=== PATIENT | female | born 1950 | race Caucasian/White ===

== ENCOUNTER 2017-11-07 10:00 | Outpatient (RCR) | payer MEDICARE, OTHER, SELFPAY | END 2017-11-07 23:59 | LOC: PT.CARL 10:00 | PROVIDERS: Referring Provider Internal Medicine; Visit Provider Internal Medicine | DX: R26.9 Unspecified abnormalities of gait and mobility (principal); M17.0 Bilateral primary osteoarthritis of knee | CPT/HCPCS: G8978; G8979; G8980; 97110; 97162 ==

== ENCOUNTER 2017-12-03 08:30 | Outpatient (RCR) | payer MEDICARE, OTHER, SELFPAY | END 2017-12-03 13:00 | disposition home or self-care (01) | LOC: PT 08:30 | PROVIDERS: Visit Provider Psychiatry & Neurology Neurology | DX: R26.9 Unspecified abnormalities of gait and mobility (principal); M17.0 Bilateral primary osteoarthritis of knee | CPT/HCPCS: 97033; 97110; 97140 ==

== ENCOUNTER 2019-03-18 13:00 | Outpatient (RCR) | payer MEDICARE, OTHER, SELFPAY | END 2019-03-30 16:06 | disposition home or self-care (01) | LOC: PT.CARL 13:00 | PROVIDERS: Visit Provider Physician Assistant | DX: R42 Dizziness and giddiness (principal); M25.551 Pain in right hip | CPT/HCPCS: 97014; 97033; 97110; 97112; 97140; 97163; G0283 ==

== ENCOUNTER 2021-02-06 11:00 | Outpatient (RCR) | payer MEDICARE, OTHER, SELFPAY | END 2021-02-06 13:00 | disposition home or self-care (01) | LOC: PT.CARL 11:00 | PROVIDERS: Visit Provider Nurse Practitioner Family | DX: R26.9 Unspecified abnormalities of gait and mobility (principal); R29.6 Repeated falls; Z86.73 Personal history of transient ischemic attack (TIA), and cerebral infarction without residual deficits | CPT/HCPCS: 97110; 97112; 97116; 97163; 97164 ==

== ENCOUNTER 2025-04-20 08:26 | Outpatient (CLI) | payer MEDICARE, OTHER, SELFPAY ==
--- OUTSIDE RECORDS SUMMARY | 2025-03-16 00:28 | XMS_ITS | Continuity of Care Document ---
Author Organization [facility] Phone Care Team Providers Care Marketing Systems Manager Name Role Phone RIKA VOGT Primary Care AUTUMN PICHARDO Admitting Unavailable AUTUMN PICHARDO Unavailable Unavailable AUTUMN PICHARDO Primary Attending Unavailable ALLERGIES AND ADVERSE REACTIONS FAMILY HISTORY RESULTS MEDICATIONS SOCIAL HISTORY VITAL SIGNS HEALTH CONCERNS ENCOUNTERS CARE TEAM
--- OUTSIDE RECORDS SUMMARY | 2025-04-18 02:15 | XMS_ITS | Continuity of Care Document ---
Author Organization [facility] Phone Care Team Providers Care Business Development Analyst Name Role Phone RIKA VOGT Primary Care COLLIN LIMON Primary Attending COLLIN LIMON Unavailable COLLIN LIMON Admitting ALLERGIES AND ADVERSE REACTIONS ALLERGIES AND ADVERSE REACTIONS Code System Allergy Substance Adverse Reaction Date Reaction (Severity) Comment Status Reported By Updated By [id number] RXNorm DARVON Drug-induced nausea and vomiting Shock active [id number] on April 16, 2025 1:45:45 AM [facility] FAMILY HISTORY RELATION: Father Status: Cause of : Unknown Age at : Unknown SNOMED-CT Diagnosis Age At Onset [id number] Diabetes mellitus [id number] Heart disease RELATION: Mother Status: Cause of : Unknown Age at : Unknown SNOMED-CT Diagnosis Age At Onset [id number] Heart disease RESULTS Patient: SUSANNAH Sutton Date of : [birth year] LABORATORY RESULTS ORDER 100: CBC AUTO W DIFF ( LOINC: 92159-4) ORDER DATE: April 16, 2025 1:43:00 AM UT Specimen Source: Whole Blood Specimen Type: Whole blood s ample PERFORMING LAB: [address] [id number] Result Comment: Final Result Date: April 16, 2025 2:02:00 AM UT (TECH: SLB) LOINC TEST FLAG RESULT REFERENCE RANGE UPDA ZOE BY 6690-2 Leukocytes [#/volume] in Blood by Automated count N 7.1 10^3/uL 4.5 10^3/uL - 11.5 10^3/uL April 16, 2025 2:02:00 AM UT (TECH: SLB) 789-8 Erythrocytes [#/volume] in Blood by Automated count L 4.02 10^6/uL 4.25 10^6/uL - 5.57 10^6/uL April 16, 2025 2:02:00 AM UTC (TECH: [employer]) 718-7 Hemoglobin [Mass/volume] in Blood L 11.4 g/dL 12.0 g/dL - 15.7 g/dL April 16, 2025 2:02:00 AM UTC (TECH: SLB) 24580-9 Hematocrit [Volume Fraction] of Blood L 34.8 % 36.0 % - 47.0 % April 16, 2025 2:02:00 AM UTC (TECH: SLB) 787-2 Erythrocyte mean corpuscular volume [Entitic volume] by Automated count N 86.6 fl 80 fl - 95 fl April 16, 2025 2:02:00 AM UTC (TECH: [employer]) 01430-7 Erythrocyte mean corpuscular hemoglobin [Entitic mass] in Blood from Fetus by Automated count N 28.4 pg 27.0 pg - 34.0 pg April 16, 2025 2:02:00 AM UTC (TECH: [employer]) 06013-3 Erythrocyte mean corpuscular hemoglobin concentration [Mass/volume] in Blood from Fetus by Automated count N 32.8 g/dL 32.0 g/dL - 36.0 g/dL April 16, 2025 2:02:00 AM UTC (TECH: [employer]) 26083-8 Platelets [#/volume] in Blood N 225 10^3/uL 150 10^3/uL - 450 10^3/uL April 16, 2025 2:02:00 AM UTC (TECH: [employer]) 42133-8 Erythrocyte distribution width [Ratio] N 13.5 % 12.3 % - 15.1 % April 16, 2025 2:02:00 AM UTC (TECH: [employer]) 28118-2 Platelet mean volume [Entitic volume] in Blood by Automated count H 10.7 fl 7.4 fl - 10.4 fl April 16, 2025 2:02:00 AM UTC (TECH: [employer]) 72454-4 Granulocytes/100 leukocytes in Blood by Automated count N 63.5 % 40 % - 75 % April 16, 2025 2:02:00 AM UTC (TECH: SLB) 736-9 Lymphocytes/100 leukocytes in Blood by Automated count N 26.1 % 15 % - 57 % April 16, 2025 2:02:00 AM UTC (TECH: SLB) 5905-5 Monocytes/100 leukocytes in Blood by Automated count N 6.2 % 4.0 % - 12.0 % April 16, 2025 2:02:00 AM UTC (TECH: SLB) 713-8 Eosinophils/100 leukocytes in Blood by Automated count N 2.8 % 0.0 % - 4.0 % April 16, 2025 2:02:00 AM UTC (TECH: SLB) 706-2 Basophils/100 leukocytes in Blood by Automated count N 0.6 % 0.0 % - 1.0 % April 16, 2025 2:02:00 AM UTC (TECH: SLB) 40209-8 Immature granulocytes [#/volume] in Blood N 0.8 % 0.0 % - 0.8 % April 16, 2025 2:02:00 AM UTC (TECH: SLB) 91048-0 Granulocytes [#/volume] in Blood by Automated count N 4.52 10^3/uL April 16, 2025 2:02:00 AM UTC (TECH: SLB) 731-0 Lymphocytes [#/volume] in Blood by Automated count N 1.86 10^3/uL April 16, 2025 2:02:00 AM UTC (TECH: SLB) 742-7 Monocytes [#/volume] in Blood by Automated count N 0.44 10^3/uL April 16, 2025 2:02:00 AM UTC (TECH: SLB) 711-2 Eosinophils [#/volume] in Blood by Automated count N 0.20 10^3/uL April 16, 2025 2:02:00 AM UTC (TECH: SLB) 704-7 Basophils [#/volume] in Blood by Automated count N 0.04 10^3/uL April 16, 2025 2:02:00 AM UTC (TECH: SLB) 60575-8 Immature granulocytes [#/volume] in Blood N 0.06 10^3/uL April 16, 2025 2:02:00 AM UTC (TECH: SLB) 24079-6 Manual differential performed [Presence] in Blood N NO April 16, 2025 2:02:00 AM UT (TECH: SLB) ORDER 200: COMP METABOLIC PA ROSAS (LOINC: 68222-6) ORDER DATE: April 16, 2025 1:43:00 AM UTC Specimen Source: Plasma Specimen Type: Plasma specim en PERFORMING LAB: [address] [id number] Result Comment: Final Result Date: April 16, 2025 2:15:00 AM UT (TECH: SLB) LOINC TEST FLAG RESULT REFERENCE RANGE UPDA ZOE BY 2951-2 Sodium [Moles/volume ] in Serum or Plasma N 139 mmol/L 136 mmol/L - 145 mmol/L April 16, 2025 2:15:00 AM UT (TECH: SLB) 2823-3 Potassium [Moles/volume] in Serum or Plasma N 3.5 mmol/L 3.5 mmol/L - 5.1 mmol/L April 16, 2025 2:15:00 AM UT (TECH: SLB) 2075-0 Chloride [Moles/volu me] in Serum or Plasma N 101 mmol/L 98 mmol/L - 107 mmol/L April 16, 2025 2:15:00 AM UT (TECH: SLB) 8-9 Carbon dioxide, tota l [Moles/volume] in Serum or Plasma N 29 mmol/L 21 mmol/L - 32 mmol/L April 16, 2025 2:15:00 AM UT (TECH: SLB) 89981-3 Anion gap 3 in Serum or Plasma N 9.0 April 16, 2025 2:15:00 AM UT (TECH: SLB) 2345-7 Glucose [Mass/volume ] in Serum or Plasma H 174 mg/dL 70 mg/dL - 110 mg/dL April 16, 2025 2:15:00 AM UTC (TECH: SLB) 3094-0 Urea nitrogen [Mass/volume] in Serum or Plasma N 16 mg/dL 7 mg/dL - 18 mg/dL April 16, 2025 2:15:00 AM UT (TECH: SLB) 2160-0 Creatinine [Mass/volume] in Serum or Plasma N 0.9 mg/dL 0.6 mg/dL - 1.0 mg/dL April 16, 2025 2:15:00 AM UTC (TECH: [employer]) 3097-3 Urea nitrogen/Creatinine [Mass Ratio] in Serum or Plasma N 17.8 9 - 21 April 16, 2025 2:15:00 AM [facility] (TECH: [employer]) 52353-7 Glomerular filtratio n rate/1.73 sq M.predicted by Creatinine-based formula (MDRD) N 67 mL/min >60 April 16, 2025 2:15:00 AM [facility] (TECH: [employer]) 40364-2 Osmolality of Serum or Plasma by calculated by sum of electrolytes N 295 mosm/kg 275 mosm/kg - 301 mosm/kg April 16, 2025 2:15:00 AM [facility] (TECH: [employer]) 2885-2 Protein [Mass/volume ] in Serum or Plasma N 6.9 g/dL 6.4 g/dL - 8.2 g/dL April 16, 2025 2:15:00 AM [facility] (TECH: [employer]) 1751-7 Albumin [Mass/volume ] in Serum or Plasma L 2.9 g/dL 3.4 g/dL - 5.0 g/dL April 16, 2025 2:15:00 AM [facility] (TECH: [employer]) 61198-1 Calcium [Mass/volume ] in Serum or Plasma N 9.0 mg/dL 8.5 mg/dL - 10.1 mg/dL April 16, 2025 2:15:00 AM [facility] (TECH: [employer]) 67975-7 Calcium [Mass/volume ] corrected for total protein in Serum or Plasma N 9.9 mg/dL 8.5 mg/dL - 10.1 mg/dL April 16, 2025 2:15:00 AM [facility] (TECH: [employer]) 1975-2 Bilirubin.total [Mass/volume] in Serum or Plasma N 0.4 mg/dL 0.4 mg/dL - 1.5 mg/dL April 16, 2025 2:15:00 AM [facility] (TECH: [employer]) 1920-8 Aspartate aminotransferase [Enzymatic activity/volume] in Serum or Plasma N 19 U/L 15 U/L - 37 U/L April 16, 2025 2:15:00 AM [facility] (TECH: [employer]) 1742-6 Alanine aminotransferase [Enzymatic activity/volume] in Serum or Plasma N 13 U/L 12 U/L - 78 U/L April 16, 2025 2:15:00 AM UTC (TECH: SLB) 6768-6 Alkaline phosphatase [Enzymatic activity/volume] in Serum or Plasma N 134 U/L 53 U/L - 141 U/L April 16, 2025 2:15:00 AM UTC (TECH: SLB) ORDER 300: TROPONIN QUANT (L OINC: 31107-1) ORDER DATE: April 16, 2025 1:43:00 AM UTC Specimen Source: Plasma Specimen Type: Plasma specim en PERFORMING LAB: [address] [id number] Result Comment: Final Result Date: April 16, 2025 2:15:00 AM UTC (TECH: SLB) LOINC TEST [place] [address]-1 Troponin I.cardiac panel - Serum or Plasma by High sensitivity method N 17 ng/L 0 ng/L - 51 ng/L April 16, 2025 2:15:00 AM UTC (TECH: SLB) ORDER 400: B-TYPE NATRIURETI C PEPTIDE BNP (LOINC: 25032-2) ORDER DATE: April 16, 2025 1:43:00 AM UTC Specimen Source: Whole Blood Specimen Type: Whole blood s ample PERFORMING LAB: [address] [id number] Result Comment: Final Result Date: April 16, 2025 2:22:00 AM UT (TECH: SLB) LOINC TEST FLAG [place] [address]-3 Natriuretic peptide B [Mass/volume] in Serum or Plasma H 169.0 pg/mL 0.0 pg/mL - 100 pg/mL April 16, 2025 2:22:00 AM UTC (TECH: SLB) LABORATORY NARRATIVE RESULTS Information is not available RADIOLOGY RESULTS ORDER 600: CHEST SINGLE VIEW /PORTABLE (LOINC: 23574-1) ORDER DATE: April 16, 2025 1:43:00 AM UTC PERFORMING LAB: [address] [id number] Final Result Date: April 16 2:36:17 AM UTC [address] [place] [address] Name: DAVALOSBRENDEN Schmitz Exam Date: 04/15/2025 : 1950 Age 75 years Gender: F Physician: Facility: [facility] Facility HSV: Outpatient Exam: CHEST SINGLE VIEW/PORTABLE FINAL REPORT TECHNIQUE: null CLINICAL HISTORY: sudden onset of [employer] / hx copd / hx abnormal EKGs never diagnosed with anything / non smoker / unable to locate her rescue inhaler COMPARISON: null FINDINGS: 1 view chest x-ray Comparison: 03/14/2025 Findings: Lungs are clear without acute infiltrates. No pneumothorax. Heart size normal. No acute bony abnormalities. IMPRESSION: Impression: No acute processes Authenticated and [facility]AST[facility] Dictated By: Parish Nichols Transcribed By: Transcribed On: 04/15/2025 10:36 PM Electronically signed by: Parish Nichols 04/15/2025 Thank you for referring BRENDEN DAVALOS to [facility]. Legally authenticated by LIAM Baez [facility] 2025-04-15 22:36:17 PATHOLOGY NARRATIVE RESULTS Information is not available MICROBIOLOGY RESULTS No Micro Labs/Results Exist for Patient BLOOD ADMIN RESULTS Information is not available MEDICATIONS HOME MEDICATIONS Status RXNORM [facility] Medication Dose Route Frequency Dates Comments Reported By Updated By Active [id number] 70185 99601 0 albuterol sulfate 90 mcg/actuatio n HFA Aerosol Inhaler 2.0 INH INHALE D Q6HPRN Last Dose: [id number] on April 16, 2025 1:45:46 AM [facility] Active 4718325 66989 10435 8 Breztri Aerosphere 160-9-4.8 mcg/actuatio n HFA Aerosol Inhaler 2.0 INH INHALE D BID Last Dose: [id number] on April 16, 2025 1:45:47 AM [facility] Active 783130 52665 32280 5 clonidine HCl 0.2 mg tablet 1.0 TAB ORAL BID Last Dose: [id number] on April 16, 2025 1:45:47 AM UT Active 523802 43765 09196 1 clopidogrel 75 mg tablet 1.0 TAB ORAL BID Last Dose: [id number] on April 16, 2025 1:45:47 AM [facility] Active 940800 93586 38899 0 escitalopram oxalate 20 mg tablet 1.0 TAB ORAL DAILY Last Dose: [id number] on April 16, 2025 1:45:47 AM [facility] Active 383605 97254 47216 1 furosemide 20 mg tablet 1.0 TAB ORAL DAILY Last Dose: [id number] on April 16, 2025 1:45:47 AM [facility] Active 183207 67671 83525 9 hydroxyzine HCl 25 mg tablet 1.0 TAB ORAL TID Last Dose: [id number] on April 16, 2025 1:45:47 AM [facility] Active 534324 00114 44146 2 losartan 100 mg tablet 1.0 TAB ORAL Last Dose: [id number] on April 16, 2025 1:45:47 AM [facility] Active 8969323 63816 91986 5 Lumigan 0.01 % drops 1.0 DRP Last Dose: [id number] on April 16, 2025 1:45:47 AM [facility] Active 075157 19987 76131 0 meloxicam 15 mg tablet 1.0 TAB ORAL DAILY Last Dose: [id number] on April 16, 2025 1:45:48 AM [facility] Active 304229 57120 89380 1 metoprolol succinate 50 mg Tablet, Extended Release 24 hr 1.0 TAB ORAL DAILY Last Dose: [id number] on April 16, 2025 1:45:48 AM [facility] Active 971835 29383 63747 1 potassium chloride 20 mEq tablet, extended release 1.0 TAB ORAL DAILY Last Dose: [id number] on April 16, 2025 1:45:48 AM [facility] Active 262411 72307 00878 1 simvastatin 20 mg tablet 1.0 TAB ORAL DAILY Last Dose: [id number] on April 16, 2025 1:45:48 AM [facility] Active 897375 25170 50943 1 trazodone 50 mg tablet 1.0 TAB ORAL Last Dose: [id number] on April 16, 2025 1:45:48 AM [facility] DISCHARGE MEDICATIONS Status RXNORM NDC Medication Dose Route Frequency Dates Comments Physician Updated By No Discharge Medication Info rmation Available INPATIENT MEDICATIONS Status RXNORM [facility] Medication Dose Route Frequency Rat e Quantity Dates Comments [facility]ician [id number] 9899 4167 134 hydrALAZINE (APRESOLINE ) 20 MG/ML SOLN 20.0 MG INTRAV ENOUS ONE TIME ONLY Start: April 16, 2025 2:14:0 0 AM UTC End: April 16, 2025 2:14:0 0 AM UTC BRAXTON Sutton MD [facility] ED on April 16, 2025 2:14:00 AM UT SOCIAL HISTORY SOCIAL HISTORY SNOMED-CT Social History Element Description Effective Dates Offered Cessation Comment UpdatedBy [id number] Current Tobacco smoking status Never Smoked [id number] on April 16, 2025 1:46:32 AM UT [id number] Historical Tobacco smoking status Former Smoker Yes quit over 50 years ago [id number] on July 19, 2016 2:54:19 PM UT SOCIAL HISTORY - Gender Sex: Female SOCIAL HISTORY - Status : status i nformation is not available Intention in Next Year: intention information is not available SOCIAL HISTORY - Sexual Behavior Sexual Orientation Gender Identity SNOMED-CT Description SNO MED -CT Description Activity Level No of Partners Partner Type UpdatedBy Information is not available VITAL SIGNS PATIENT VITAL SIGNS This section displays the mo st recent value for each vital sign as of April 18, 2025 6:15:57 AM UT Loinc Code Vital Sign Activity Date Result Updated By 8310-5 Body temperature April 16, 2025 1:35:37 AM UTC 97.9 [degF] [id number] on April 17, 2025 3:09:[place] [address]-0 Body weight Measured April 16 1:41:00 AM UTC 109.0 kg (240.0 lb) [id number] on April 16, 2025 1:41:00 AM UT 8462-4 Diastolic blood pressure April 16, 2025 2:46:00 AM UTC 77.0 mm[Hg] [id number] on April 17, 2025 3:10:03 AM UT 8867-4 Heart rate April 16, 2025 2:47:00 AM UTC 80 /min [id number] on April 17, 2025 3:10:[place] [address]-5 Oxygen saturation in Arterial blood by Pulse oximetry April 16, 2025 2:47:00 AM UTC 97.0 % [id number] on April 17, 2025 3:10:04 AM UT 9279-1 Respiratory rate April 16, 2025 2:47:00 AM UTC 15 /min [id number] on April 17, 2025 3:10:04 AM [facility] 8480-6 Systolic blood pressure April 16, 2025 2:46:00 AM [facility] 193.0 mm[Hg] [id number] on April 17, 2025 3:10:03 AM [facility] PEDIATRIC GROWTH CHART - VITAL SIGNS This section displays Head C ircumference Percentile, Weight for Length Percentile and BMI Percentile Loinc Code Pediatric Measure Age (Months) Result Updat ed By No Pediatric Growth Chart Pe rcentile Information Available. HEALTH CONCERNS Problems Concern Status Health Concern problem infor mation not available. Smoking Status Status Years Used Consumed packs p er day Health Concern smoking histo ry information not available. Family History Concern Status Health Concern family histor y information not available. ENCOUNTERS ENCOUNTER INFORMATION Reason for Visit SHORTNESS OF BREATH Admission April 16, 2025 1:28:[address] [id number] Discharge April 16, 2025 3:09:00 AM [facility] DISC HARGED TO HOME OR SELF CARE ENCOUNTER DIAGNOSES Notes information is not inna ilable. Code System Diagnosis Onset Date Diagnosis information is not available. ABSTRACT DIAGNOSES Code System Diagnosis Updated By R06.02 ICD10 SHORTNESS OF BREATH [id number] on April 18, 2025 6:13:51 AM [facility] R06.00 ICD10 DYSPNEA, UNSPECIFIED [id number] on April 18, 2025 6:13:51 AM [facility] R06.00 ICD10 DYSPNEA, UNSPECIFIED [id number] on April 18, 2025 6:13:51 AM [facility] I10 ICD10 ESSENTIAL (PRIMARY) HYPERTEN HOLDEN SYE6123 on April 18, 2025 6:13:51 AM [facility] J45.909 ICD10 UNSPECIFIED ASTHMA, UNCOMPLI CATED [id number] on April 18, 2025 6:13:51 AM [facility] F41.9 ICD10 ANXIETY DISORDER, UNSPECIFIE D [id number] on April 18, 2025 6:13:51 AM [facility] F32.A ICD10 DEPRESSION, UNSPECIFIED BYE3 630 on April 18, 2025 6:13:51 AM [facility] Z88.8 ICD10 ALLERGY STATUS T O OTHER DRUGS, MEDICAMENTS AND BIOLOGICAL SUBSTANCES [id number] on April 18, 2025 6:13:51 AM [facility] Z79.51 ICD10 FCI (CURRE NT) USE OF INHALED STEROIDS [id number] on April 18, 2025 6:13:51 AM [facility] Z79.899 ICD10 OTHER FCI (CURRENT) DR UG THERAPY [id number] on April 18, 2025 6:13:51 AM [facility] CARE TEAM Care Business Development Analyst Role RIKA VOGT Primary Care COLLIN LIMON Primary Attending COLLIN LIMON Referring COLLIN LIMON Admitting 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 CARE plastics supervisor Role on Team Status Start Date End Date Update d By BRAXTON Sutton MD Referring normal April 16 2:00:14 AM [facility] April 16, 2025 3:09:00 AM [facility] [id number] on April 16, 2025 2:00:14 AM [facility] BRAXTON Sutton MD Attending normal April 16 2:00:14 AM [facility] April 16, 2025 3:09:00 AM [facility] [id number] on April 16, 2025 2:00:14 AM [facility] BRAXTON Sutton MD Admitting normal April 16 2:00:14 AM [facility] April 16, 2025 3:09:00 AM [facility] [id number] on April 16, 2025 2:00:14 AM [facility] SIN BURRIS APRN PCP normal April 16, 2025 1:28:20 AM [facility] April 16, 2025 3:09:00 AM [facility] [id number] on April 16, 2025 2:00:14 AM [facility]
--- OUTSIDE RECORDS SUMMARY | 2025-04-20 08:29 | XMS_ITS | Data Portability ---
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 She has been instructed to go to the emergency department if she is no better. patient states that she is not allergic to any antibiotic. [email or web address] Not available 11/12/2023 15:59:00 Plan of Treatment Reminders Order Date Submit Date Provider Last Modified By Organization Details Last Modified Time Details Appointments None recorded. Lab influenza virus A + B + SARS-CoV-2 (COVID19) Ag panel, rapid IA, upper respiratory specimen 2023 [facility], [address] [place], [address], 16:11:57 Referral None recorded. Procedures None recorded. Surgeries None recorded. Imaging MAMMO, screening, digital, bilateral 2022 024 [facility] ([facility]), [address] [place] [address] [place], [address], 4 08:11:57 Medication Orders doxycycline hyclate 100 mg capsule 2023 024 [facility], [address] [place], [address], 4 09:38:29 Medrol (Timothy) 4 mg tablets in a dose pack 2023 024 [facility], [address] [place], [address], 4 09:39:45 Solu-Medrol (PF) 125 mg/2 mL solution for injection 2023 024 [facility] Not available 4 09:40:18 ceftriaxone 1 gram solution for injection 2023 024 [facility] Not available 4 09:40:49 Patient TargetsNo targets recorded. Patient InstructionsNo instructions recorded. Reason for Referral None Reported. Results Created Date Observation Date Name Description Value Unit Range Abnormal Flag Note LastModifiedBy Organization Detail LastModifiedTime 11/12/19 24 11/12/2023 influ anand virus A + B + SARS- CoV-2 (COVI D19) Ag panel , rapid IA, upper respi rator y speci men FLU A negati ve Not Available [address] [place], [address], 11/12/2023 15:32:01 11/12/19 24 11/12/2023 influ anand virus A + B + SARS- CoV-2 (COVI D19) Ag panel , rapid IA, upper respi rator y speci men FLU B negati ve Not Available [address] [place], [address], 11/12/2023 15:32:01 11/12/19 24 11/12/2023 influ anand virus A + B + SARS- CoV-2 (COVI D19) Ag panel , rapid IA, upper respi rator y speci men SARS COV + SARS OV 2 negati ve Not Available [address] [place], [address], 11/12/2023 15:32:01 01/20/20 24 01/20/2024 elect tonie becerra am No observ ation record ed. [address] [place], [address], 01/20/2024 14:17:03 01/20/20 24 01/20/2024 elect tonie becerra am No observ ation record ed. [facility] - [address], [place], [address], 01/20/2024 14:15:32 Result Notes None recorded. Problems Name Problem SNOMED Code Status Onset Date Resolution Date Notes Provider Name and Address Organization Details Recorded Time Essential hypertension 53663553 Active 2022 Latosha Pardini null, [place] - [facility] - [place] & [place] 3 09:37:56 Arthritis 7460414 Active 2022 Latosha Pard[place] 3 09:38:04 Edema 329077227 Active 2022 Latosha Pard[place] 3 09:38:11 Type 2 diabetes mellitus 06354130 Active 2022 Latosha Pard[place] 3 09:38:23 Insomnia 906796695 Active 2022 Latosha Pard[place] 3 09:38:33 Cerebrovascul ar accident 513561976 Active 2022 Latosha Pard[place] 3 09:39:04 Asthma 390779609 Active 2022 Latosha Pard[place] 3 09:39:12 Mixed anxiety and depressive disorder 326270711 Active 2022 Latosha Pardini [place] 3 09:39:28 Pulmonary hypertension 92693870 Active 2022 Latosha Pardini null, [place] [facility] [place] & [place] 3 09:39:47 Morbid obesity 136453905 Active 2022 Latosha mckeon, [place] [facility] [place] 3 09:39:58 Hypertensive disorder 94840006 Active 2022 Juwan Soria MD [address] [place] [address], [address] , [place] - [facility] - [place] & [place] 3 10:28:12 Intentionally harming self Active 2023 Lat[facility]ha [facility]ckeon, [place] [facility] [place] 4 14:16:52 Problem Notes None recorded. Procedures Surgical History Date Name Laterality Status Provider Name and Address Organization Details Recorded Time section completed Shira ROSENBAUM - [facility] - [place] & [place] 04/14/2023 16:17:02 cardiac catheterization completed Shira ROSENBAUM - [facility] - [place] & [place] 04/14/2023 16:17:13 Dilation and Curettage completed Shira Henry ROSENBAUM - [facility] - [place] & [place] 04/14/2023 16:17:47 Hysterectomy completed Shira ROSENBAUM - [facility] - [place] & [place] 04/14/2023 16:18:04 Imaging Results None recorded. Procedure Notes None recorded. Medical Equipment None Reported. Allergies Allergen ID Allergen Name Allergen Category Reaction Reaction Severity Criticality Documentation Date Start Date Code Code System Note Provider Name and Address Organization Details Recorded Time 88861 Cipro medicatio n Not available Not available Not available 10/16/2022 43389 3 RxNorm Arabella mckeon, [place] - [facility] - [place] & [place] 2 09:37:43 20879 Substance with sulfonami de structure and antibacte rial mechanism of action (substanc e) medicatio n Not available Not available Not available 10/16/2022 33294 8003 SNOMED Arabella mckeon, [place] - [facility] - [place] & [place] 2 09:37:48 07730 Bactrim medicatio n Not available Not available Not available 10/16/2022 81847 9 [facility] & [place] 2 09:37:55 48258 propoxyph meghna hydrochlo ride medicatio n Not available Not available Not available 10/16/2022 60743 RxNorm ROBI Ashley [facility] & [place] 2 09:38:03 51970 Ceftin medicatio n Not available Not available Not available 10/16/2022 55225 6 RxNorm ROBI Ashley [facility] & [place] 2 09:38:10 49787 house dust mite environme nt Not available Not available Not available 10/16/2022 83262 UNK [facility] & [place] 2 09:38:17 Medications Name Sig Start Date Stop Date Status Note LastModified by Organization Details LastModified Time fluoxetine 40 mg capsule TAKE 1 CAPSULE BY MOUTH EVERY MORNING 2023 active Not Available Not Available Not Avai lable furosemide 40 mg tablet TAKE 1 TABLET BY MOUTH EVERY DAY active Not Available Not Available No t Available metformin 500 mg tablet Take 1 tablet twice a day by oral route as directed for 30 days. active Not Available Not Available No t Available doxycycline hyclate 100 mg capsule Take 1 capsule twice a day by oral route. 01/18 completed Not Available Not Available Not Available trazodone 50 mg tablet TAKE 1 TABLET BY MOUTH AT BEDTIME active Not Available Not Available No t Available lisinopril 20 mg-hydrochl orothiazide 12.5 mg tablet Take 1 tablet every day by oral route as directed. 01/18 completed Not Available Not Available Not Available azithromyci n 250 mg tablet TAKE 2 TABLETS (500 MG) BY ORAL ROUTE ONCE DAILY FOR 1 DAY THEN 1 TABLET (250 MG) BY ORAL ROUTE ONCE DAILY FOR 4 DAYS 05/21 completed Not Available Not Available Not Available metoprolol succinate ER 50 mg tablet,exte nded release 24 hr active Not Available Not Available Not Available meloxicam 15 mg tablet TAKE 1 TABLET EVERY DAY BY ORAL ROUTE. 2023 active Not Available Not Available Not Avai lable prednisone 20 mg tablet 09/22 completed Not Available Not Available Not Available simvastatin 10 mg tablet Take 1 tablet every day by oral route as directed for 30 days. active Not Available Not Available No t Available clopidogrel 75 mg tablet TAKE 1 TABLET BY MOUTH DAILY active Not Available Not Available No t Available aspirin 81 mg tablet,radha yed release Take 1 tablet every day by oral route as directed. active Not Available Not Available No t Available quetiapine 100 mg tablet Take 1 mg every day by oral route at bedtime for 20 days. 04/08 completed Not Available Not Available Not Available isosorbide mononitrate ER 60 mg tablet,exte nded release 24 hr RX needs to be filled by Dr Atkinson active Not Available Not Available No t Available ceftriaxone 1 gram solution for injection Take 1 g by injection route. 01/18 completed Not Available Not Available Not Available clonidine HCl 0.2 mg tablet denied-ne eds appt active Not Available Not Available No t Available potassium chloride ER 20 mEq tablet,exte nded release(par t/cryst) 1 tablet by mouth once daily with LASIX active Not Available Not Available No t Available hydroxyzine HCl 25 mg tablet Take 1 tablet 3 times a day by oral route as needed. active Not Available Not Available No t Available zolpidem 5 mg tablet Take 1 tablet every day by oral route. 01/18 completed Not Available Not Available Not Available methylpredn isolone 4 mg tablets in a dose pack Take 1 dose pk by oral route. 01/18 completed Not Available Not Available Not Available losartan 100 mg tablet TAKE 1 TABLET BY MOUTH EVERY DAY active Not Available Not Available No t Available metformin ER 500 mg tablet,exte nded release 24 hr 05/21 completed Not Available Not Available Not Available Ventolin HFA 90 mcg/actuati on aerosol inhaler active Not Available Not Available Not Available azithromyci n 500 mg tablet 08/22 completed Not Available Not Available Not Available escitalopra m 10 mg tablet TAKE 1 TABLET BY MOUTH EVERY DAY DIRECTED 2023 active Not Available Not Available Not Avai lable ezetimibe 10 mg tablet 11/27 completed Not Available Not Available Not Available nitrofurant oin monohydrate /macrocryst als 100 mg capsule 11/27 completed Not Available Not Available Not Available aspirin 02/25 completed Not Available Not Available Not Available albuterol 11/27 completed Not Available Not Available Not Available lisinopril 11/27 completed Not Available Not Available Not Available Symbicort 160 mcg-4.5 mcg/actuati on HFA aerosol inhaler INHALE 2 PUFFS BY MOUTH TWICE DAILY 01/18 completed Not Available Not Available Not Available Solu-Medrol (PF) 125 mg/2 mL solution for injection Take 125 mg by injection route. 01/18 completed Not Available Not Available Not Available Lumigan 0.01 % eye drops active Not Available Not Available Not Available metoprolol succinate ER 100 mg capsule sprinkle, ext. release 24 hr Take 1 capsule every day by oral route. 11/27 completed Not Available Not Available Not Available Rhopressa 0.02 % eye drops active Not Available Not Available Not Available Breztri Aerosphere 160 mcg-9mcg-4. 8mcg/actuat ion HFA aerosol inhaler Inhale 1 puff twice a day by inhalatio n route for 90 days. 2022 active Not Available Not Available Not Avai lable Vitals Date Recorded Body height Body mass index (BMI) Body weight Body temperature Oxygen saturation Oxygen saturation in Arterial blood by Pulse oximetry Heart rate Respiratory rate Provider Name and Address Organization Details Last Updated DateTime 4 154.94 cm 44.4 kg/m2 866657. 21 g 97.2 [degF] 91 % 91 % 90 /min 18 /min Fredi Lopez [facility] & [place] 4 15:31:24 Date Recorded Body height Body mass index (BMI) Body weight Oxygen saturation Oxygen saturation in Arterial blood by Pulse oximetry Heart rate Systolic blood pressure Diastolic blood pressure Provider Name and Address Organization Details Last Updated DateTime 4 154.94 cm 39.5 kg/m2 23728.0 9 g 95 % 95 % 64 /min 147 mm[Hg] 76 mm[Hg] Sarah Ball [facility] & [place] 4 09:39:18 Date Recorded Body height Body mass index (BMI) Body weight Body temperature Oxygen saturation Oxygen saturation in Arterial blood by Pulse oximetry Heart rate Respiratory rate Systolic blood pressure Diastolic blood pressure Provider Name and Address Organization Details Last Updated DateTime 4 154.94 cm 39.6 kg/m2 34224.2 4 g 97.4 [degF] 95 % 95 % 62 /min 16 /min 108 mm[Hg] 56 mm[Hg] Latosha ROSENBAUM [facility] & [place] 4 14:14:22 Date Recorded Body height Body mass index (BMI) Body weight Body temperature Oxygen saturation Oxygen saturation in Arterial blood by Pulse oximetry Heart rate Respiratory rate Systolic blood pressure Diastolic blood pressure Provider Name and Address Organization Details Last Updated DateTime 4 154.94 cm 39.5 kg/m2 83885.8 1 g 97.5 [degF] 95 % 95 % 66 /min 16 /min 135 mm[Hg] 70 mm[Hg] Latosha Maciel [facility] & [place] 4 10:16:20 Date Recorded Body height Body mass index (BMI) Body weight Body temperature Oxygen saturation Oxygen saturation in Arterial blood by Pulse oximetry Heart rate Respiratory rate Systolic blood pressure Diastolic blood pressure Systolic blood pressure Diastolic blood pressure Provider Name and Address Organization Details Last Updated DateTime 3 154.94 cm 44.5 kg/m2 514156. 64 g 97.3 [degF] 94 % 94 % 57 /min 18 /min 200 mm[Hg] 85 mm[Hg] 197 mm[Hg] 74 mm[Hg] Latosha ROSENBAUM [facility] & [place] 3 10:18:44 Social History Question Answer Notes LastModified by Astley Clarke Details LastModified Time Tobacco Smoking Status Never Smoker ROBI Ashley [facility] & [place] 10/16/2022 09:49:36 What Is Your Level Of Caffeine Consumption? Occasional Information not available 10/14/2023 Has Tobacco Cessation Counseling Been Provided? No Information not available 10/14/2023 Sex: Unknown Functional Status Question Answer Note LastModified by Astley Clarke Details LastModified Time Do you use any illicit or recreational drugs? No [email or web address] Information not available 10/16/2022 Do you or have you ever used any other forms of tobacco or nicotine? No Information not available 10/14/2023 What is your level of alcohol consumption? None [email or web address] Information not available 10/16/2022 Mental Status None recorded. Family History Relationship Description Onset Age of this Age Resolved Age Notes LastModified by Organization Details LastModified Time Mother Hypertensive disorder [email or web address] Not available 2021 09:48:38 Mother Family member [email or web address] Not available 2021 09:49:24 Father Hypertensive disorder Not available 2021 09:48:45 Father Diabetes mellitus [email or web address] Not available 2021 09:48:55 Father Family member [email or web address] Not available 2021 09:49:24 Maternal Grandfather Family member [email or web address] Not available 2021 09:49:24 Maternal Grandmother Family member Not available 2021 09:49:24 Paternal Grandfather Family member [email or web address] Not available 2021 09:49:24 Paternal Grandmother Family member [email or web address] Not available 2021 09:49:24 Medical History Condition Response Anxiety Disorder Y Diabetes Y Allergies/Hayfever Y Arthritis Y Cancer Y Hypertension Y COPD Y Asthma Y Gynecological HistoryNo gynecological history recorded. Obstetrics History GPAL:G 0 P 0 0 0 0 Immunizations Vaccine Type Date Status Note Provider Nam e and Address Organization Details Recorded Time COVID-19, mRNA, LNP-S, PF, 30 mcg/0.3 mL dose 08/13/2021 completed Latosha mckeon [place] - [facility] - [place] & [place] 11/27/2022 09:36:46 COVID-19, mRNA, LNP-S, PF, 30 mcg/0.3 mL dose 07/12/2021 completed Latosha Ashleyi [place], [place] - [facility] [place] & [place] 11/27/2022 09:36:46 Past Encounters Encounter ID Performer Location Encounter Start Date Encounter Closed Date Diagnosis/Indication Diagnosis SNOMED-CT Code Diagnosis ICD10 Code Diagnosis Note [id number] Juwan Soria MD [id number] [address] 11/27/2022 09:24:05 11/27/2022 10:13:47 Mixed anxiety and depressive disorder 895025077 F41.8 Will refer to Behavioral diseaseas specialist Type 2 blair betes mellitus 19536735 E11.9 Hypertensive disorder 38 179691 I10 patient to continue with current medication s. Will obtain lab work today. [id number] Juwan Soria MD [facility] [address] [address] 01/14/2023 10:55:10 01/14/2023 11:41:38 Upper respiratory infection 09354647 J06.9 will treat patient with antibiotic s and steroids. She has been instructed to follow-up as needed. Edema 127081135 R60.9 Essential hypertension 04934734 I10 Insomnia 274114961 G47.0 0 [id number] Juwan Soria MD [address] [place] [address] 05/21/2023 10:40:44 05/21/2023 11:46:10 Acute confusion 332670868 R41.0 Altered mental status 41 5819242 R41.82 We have had extensive discussion with patient as well as with her spouse. It appears patient has been having episodes of acute confusion which include wandering and has been making on sound decisions. Patient herself states that she has been more depressed than usual. At this time she appears to be in remission. A review of her last ER visit on May 08, 2023 reveals no abnormalit ies. She had a CT scan that showed mild atrophy and chronic changes only.Mckenna vazquez is worried about how to take care of patient.I will refer patient to Neurology at [facility]. And get a baseline set of labs on her today. Type 2 blair betes mellitus 10806294 E11.9 blood drawn in the right hand by Latosha Maciel CMA, patient tolerated well. [id number] RUBÉN NGUYỄN, NASH [address] [place] [address] 08/22/2023 14:14:05 08/22/2023 14:42:00 Acute exacerbation of chronic asthmatic bronchitis 621451822 J44.1 Stop Symbicort. Start Breztri inhaler to take 2 puffs twice a day. Use Ventolin inhaler as neededresc ue vs maintenanc e inhaler educationu se of inhalers Essential hypertension 16138705 I10 compliance with medication importance f/u with PCP next week to recheck BPeducated on goal of less than 130/90advi sed low sodium diet, healthy lifestyle including exercise as ableER if any symptoms such as chest pain, shortness of breathIf her blood pressure gets worse, she needs to go to the ER. Educated on the importance of medication compliance . Edema 918002017 R60.9 Renewed Lasix to take with potassium [id number] Juwan Soria MD [address] [place] [address] 09/22/2023 10:29:35 09/22/2023 11:27:49 Poor short-term memory 815058864 R41.3 patient agrees to follow-up with Dr. [place] in [place] Insomnia 160554550 G47.0 0 we will start pt on ambien to use as needed [id number] Juwan Soria MD [address] [place] [address] 10/14/2023 10:06:15 10/14/2023 10:47:32 Essential hypertension 41396706 I10 Patient's blood pressure remains markedly elevated. She is also complainin g of a slight nonspecifi c headache. In view of the acuteness of patient's symptoms I have personally walked her over to her cardiologi 's office. She has been advised to go to the emergency department by her cardiologi . [id number] Juwan Soria MD [address] [place] [address] 11/12/2023 14:47:55 11/12/2023 16:09:47 Screening mammography of bilateral breasts 4916596051 29079 Z12.31 Cough 34553183 R05.9 Negative for COVID or the flu. Acute bronchitis 0770182 2 J20.9 [id number] Medina Vaughn MD [address] [place] [address] 01/19/2024 09:03:27 01/19/2024 09:57:45 Essential hypertension 82911322 I10 was uncontroll ed and went to ER. ER added ISMN now better controlled , patient asymptomat ic, will continue her BB, ISMN, and lasix. will increase the dose if needed. EKG normal. Blood work reviewed. Screening for cardiovascular system disease 904089156 Z13.6 Patient has multiple risk factors for coronary artery disease, but asymptomat ic. EKG normal sinus rhythm. continue medical treatment. no indication for ischemic work up at this time. Dyslipidemia 678863872 E 78.5 On statin follow up fasting lipid profile. History of cerebrovascular accident 434210591 Z86.73 No residual weakness, but has mild dementia. she is on Plavix and statin. Obesity 201231151 E66.9 BMI 39.5 recommend weight loss and sleep apnea evaluation . [id number] Juwan Soria MD [place] [address] [facility] [place] [address] 02/26/2024 13:53:55 02/26/2024 14:36:26 Altered mental status 034387161 R41.82 patient already follows up with Neurology. Patient is currently receiving home health care. [id number] Juwan Soria MD [place] [address] [facility] [place] [address] 04/08/2024 10:09:54 04/08/2024 10:37:13 Increased frequency of urination 114658144 R35.0 we have advised patient to reduce her furosemide to 20 mg a day. Will also obtain a urine specimen to rule out a UTI. Health Concerns Section Related Observation LastModified by Organization Detai ls LastModified Time None Recorded Concern Status LastModified by Organization Details LastModified Time None Recorded Advance Directives Directive None Recorded Payers Insurance Date Sequence Insurance Name Policy Number Policy Hunter Covered Member ID Hunter Member ID Guarantor Name 05/29/2024 1 [place] Renuka Watts [id number] Renuka Watts 05/29/2024 2 [employer] (MEDICARE SUPPLEMENT) Renuka Watts [id number] Renuka Watts 05/29/2024 [place] Renuka [facility] [id number] Renuka Watts 05/29/2024 2 [employer] (MEDICARE SUPPLEMENT) PLAN F Renuka Watts [id number] Renuka Watts 05/29/2024 1 [place] Renuka Watts [id number] Renuka Watts 05/29/2024 [place] - [facility] (MEDICARE) Renuka Watts [id number] Renuka Watts Notes Date Note Type Note Provider Name and Address Organization Details Recorded Time 10/14/2023 text/html Patient presents today complaining of a headache and elevated blood pressure. Patient's blood pressure is 200/85 in the office. A recheck came back at 197/74. Patient has a history of chronic high blood pressure. She is on multiple medications for this they include clonidine furosemide lisinopril / HCTZ metoprolol. Juwan Soria MD [address] [place] [address], [phone], [facility] 10/14/2023 11:04:20 11/12/2023 text/html patient presents today to follow-up from a hospital visit due to abdominal pain. She is complaining of a 1-2 day history of a cough that is productive of yellowish-green sputum. Patient is also wheezing pretty bad she has a baseline diagnosis of COPD. Juwan Soria MD [address] [place] [address], [phone], [facility] 11/12/2023 15:59:16 01/19/2024 text/html 73 year old colette steen with past medical history of CVA several years ago as per the patient with no residual weakness, mild dementia, hypertension, dyslipidemia and obesity.Patient came today to establish follow up with the cardiovascular clinic after ER visit on 01/13/24 for uncontrolled hypertension. She is accompanied by her .Patient was in the ER for uncontrolled hypertension, admitted for one day, I reviewed the blood work and the echocardiogram that was done during that admission and discussed the results with the patient. She is denying any chest pain. no shortness of breath at rest or mild exertion. no palpitations, dizziness, falling down or passing out. no orthopnea, PND or leg swelling, no bleeding. Her blood pressure is better controlled today, will continue medications.Her EKG done today and results were discssed with the patient. EKG 01/19/24 Normal sinus rhythm normal EKG.Echo 01/14/24:Normal left ventricular systolic function EF 55-60%. Medina Vaughn MD [address] [place] [address], [phone], [facility] & [place] 01/19/2024 10:00:47 02/26/2024 text/html patient presents today for hospital follow-up visit. She was recently admitted to [place] in [place]. Patient states that she had acute status changes prior to admission. She states that she is currently back to baseline. Juwan Soria MD [address] [place] [address], [phone], [facility] & [place] 03/09/2024 09:22:23 04/08/2024 text/html Patient presents today complaining of urinary frequency. She thinks she is taking too much Lasix. Patient is urinating 7 to 8 times a day. Juwan Soria MD [address] [place] [address], [phone], [facility] & [place] 04/08/2024 10:59:06 OBGyn Episode No OBEpisode recorded.
--- OUTSIDE RECORDS SUMMARY | 2025-04-20 08:30 | XMS_ITS | Data Portability ---
Author Organization [facility] Beyond the [employer]., [facility] Address [address] [place] [address] Assessment Encounter Date Assessment Date Assessment LastModified by Organization Details LastModified Time 01/10/2025 01/10/2025 +Influenza A in clinic today. Tamiflu as prescribed given other chronic conditions. RF albuterol inhaler for PRN use. Instructed r/t complications of influenza virus and the importance of following up if worsening/not improving. May use Mucinex and tylenol OTC per package instructions. Follow up if no improvement or worsening and as planned. Not available 01/12/2025 10:21:07 01/21/2025 01/21/2025 Chest XR per plan. Medications per plan. If no improvement in the next 48 hours, recommended ER evaluation. Albuterol inhaler PRN. Follow up in 2 weeks for MWV, sooner if needed. Not available 01/21/2025 11:11:43 02/04/2025 02/04/2025 Wellness discussed including recommended screenings, vaccines and lifestyle changes including routine exercise 30 minutes 5 times per week and a healthy diet. Encouraged getting up and moving around throughout the day. Discussed fall prevention and avoiding trip hazards. Encouraged physical therapy for muscle weakness and fall prevention, but patient declines at this time. Mammogram ordered with patient permission. She declines immunizations including COVID booster, pneumonia vaccine, shingrix. Eye exam recommended. Labs per plan below BP controlled. COPD - using albuterol less frequently. Maybe once every other day. Follow up in 3 months for recheck diabetes, sooner if needed Not available 02/04/2025 13:26:04 03/14/2025 03/14/2025 Given her symptoms, recommended ER evaluation today. Her agrees and will drive her directly to [facility] ER. Provided copy of today's ECG to take with her to ER. Follow up to be planned after ER visit. Not available 03/23/2025 08:16:38 03/28/2025 03/28/2025 Treat per plan below. Instructed on use of nebulizer. Chest XR normal. Patient requests wheelchair to use at home. Follow up if no improvement or worsening and as planned, sooner if needed Addendum: There are times when patient cannot use walker and needs wheelchair due to fall risk. She can use the walker for short distances, but if she has to walk or stand for more than 2-3 minutes, she needs wheelchair due to OA of bilateral knees, muscle weakness, fall risk and decreased mobility. Not available 03/30/2025 09:59:34 Plan of Treatment Reminders Order Date Submit Date Provider Last Modified By Organization Details Last Modified Time Details Appointments FOLLOW UP 15 2024 11:00A Allison Gonzalez Not available Not available Not available Lab CBC w/ auto diff 2024 025 [facility] ([place]), [address] [place], [address], 02/05/2025 05:07:01 HbA1c (hemoglob in A1c), blood 2024 025 [facility] ([place]), [address] [place], [address], 02/05/2025 05:07:04 CMP, serum or plasma 2024 025 [email or web address] ([place]), [address] [place], [address], 02/05/2025 05:07:02 lipid panel, serum 2024 025 [facility] ([place]), [address] [place], [address], 02/05/2025 05:07:03 Hepatitis C IgG Ab, qual, serum 2024 025 [facility] ([place]), [address] [facility], [place], [address], 02/05/2025 05:07:04 rapid flu (A+B) [address], [address], 01/21/2025 11:12:16 rapid SARS CoV 2 Ag, QL, IA, upper respirato ry specimen [email or web address], [address], 01/21/2025 08:56:20 rapid flu (A+B) [address], [address], 01/10/2025 09:18:34 rapid SARS CoV 2 Ag, QL, IA, upper respirato ry specimen [address], [address], 01/10/2025 09:18:34 Referral None recorded. Procedures None recorded. Surgeries None recorded. Imaging XR, chest, 2 view 2024 [email or web address], [address], 03/29/2025 10:21:14 electroca rdiogram 2024 [email or web address], [address], 03/14/2025 12:55:38 MAMMO, screening , digital, bilateral - first available appt [address] Centralized Scheduling, [address] , [place], [address], 03/11/2025 11:54:03 XR, chest, 2 view 2024 [facility] [place], [facility], [address] [facility], [place], [address], 01/21/2025 11:31:09 Medication Orders prednison e 20 mg tablet 2024 025 [facility], [address] [place], [address], 03/29/2025 09:27:15 azithromy hector 250 mg tablet 2024 025 [facility], [address] [place], [address], 03/29/2025 09:27:16 ipratropi um 0.5 mg-albute rol 3 mg (2.5 mg base)/3 mL nebulizat ion soln 2024 025 [email or web address] Not available 03/28/2025 13:16:49 albuterol sulfate 2.5 mg/3 mL (0.083 %) solution for nebulizat ion 2024 025 [facility], [address] , [place], [address], 03/30/2025 16:06:44 amoxicill in 875 mg-potass ium clavulana te 125 mg tablet 2024 025 [facility], [address] [place], [address], 02/04/2025 09:36:41 prednison e 20 mg tablet 2024 025 [facility], [address] , [place], [address], 02/04/2025 09:36:42 oseltamiv ir 75 mg capsule 2024 025 [facility], [address] [place], [address], 03/28/2025 10:04:33 Ventolin HFA 90 mcg/actua tion aerosol inhaler 2024 025 [facility], [address] [place], [address], 01/10/2025 10:18:13 Patient TargetsNo targets recorded. Patient Instructions Encounter Date Encounter Id Patient Instructions Last Modified By Organization Details Last Modified Time 01/10/2025 [id number] learning about fever Not available 01/10/2025 09:18:34 wheezing or bronchoconstricti on: care instructions Not available 01/10/2025 09:19:20 01/21/2025 [id number] learning about fever [email or web address] Not available 01/21/2025 08:56:02 shortness of breath: care instructions [email or web address] Not available 01/21/2025 08:56:02 02/04/2025 [id number] dementia: care instructions Not available 02/04/2025 13:25:06 helping A person with dementia: care instructions Not available 02/04/2025 13:25:06 learning about type 2 diabetes Not available 02/04/2025 10:00:32 type 2 diabetes: care instructions Not available 02/04/2025 10:00:32 chronic obstructive pulmonary disease (COPD): care instructions Not available 02/04/2025 13:26:20 learning about copd and how to prevent lung infections Not available 02/04/2025 13:26:20 body mass index: care instructions Not available 02/04/2025 13:24:00 learning about healthy weight Not available 02/04/2025 13:24:00 Reason for Referral None Reported. Results Created Date Observation Date Name Description Value Unit Range Abnormal Flag Note LastModifiedBy Organization Detail LastModifiedTime 01/11/2001/10/2025 rapid flu (A+B) Flu A positi ve Not Available [address], [address], 01/10/2025 08:41:16 01/11/20 25 01/10/2025 rapid flu (A+B) Flu B negati ve Not Available [address], [address], 01/10/2025 08:41:16 01/11/20 25 01/10/2025 rapid SARS CoV 2 Ag, QL, IA, upper respi rator y speci men SARS CoV Ag negati ve Not Available [address], [address], 01/10/2025 08:41:18 01/22/20 25 01/21/2025 rapid flu (A+B) Flu A negati ve Not Available [address], [address], 01/21/2025 08:41:26 01/22/20 25 01/21/2025 rapid flu (A+B) Flu B negati ve Not Available [address], [address], 01/21/2025 08:41:26 01/22/20 25 01/21/2025 rapid SARS CoV 2 Ag, QL, IA, upper respi rator y speci men SARS CoV Ag negati ve Not Available [address], [address], 01/21/2025 08:41:31 02/05/20 25 02/05/2025 CBC WITH DIFFE RENTI AL/PL ATELE T WBC 6.4 x10e3 /uL 3.4-10 .8 normal Not Available [facility] ([facility]) [address] [facility] [address], [place], [address], 02/05/2025 05:07:01 02/05/20 25 02/05/2025 CBC WITH DIFFE RENTI AL/PL ATELE T RBC 4.50 x10e6 /uL 3.77-5 .28 normal Not Available [facility] ([facility]) [address] [place], [address], 02/05/2025 05:07:01 02/05/20 25 02/05/2025 CBC WITH DIFFE RENTI AL/PL ATELE T hemoglobin 12.8 g/dL 11.1-1 5.9 normal Not Available [facility] ([facility]) [address] [place], [address], 02/05/2025 05:07:01 02/05/20 25 02/05/2025 CBC WITH DIFFE RENTI AL/PL ATELE T hematocrit 39.4 % 34.0-4 6.6 normal Not Available [facility] ([facility]) [address] [place], [address], 02/05/2025 05:07:01 02/05/20 25 02/05/2025 CBC WITH DIFFE RENTI AL/PL ATELE T MCV 88 fL 79-97 normal Not Available [facility] ([facility]) [address] [place], [address], 02/05/2025 05:07:01 02/05/20 25 02/05/2025 CBC WITH DIFFE RENTI AL/PL ATELE T MCH 28.4 pg 26.6-3 3.0 normal Not Available [facility] ([facility]) [address] [place], [address], 02/05/2025 05:07:01 02/05/20 25 02/05/2025 CBC WITH DIFFE RENTI AL/PL ATELE T MCHC 32.5 g/dL 31.5-3 5.7 normal Not Available [facility] ([facility]) [address] [facility] [place], [address], 02/05/2025 05:07:01 02/05/20 25 02/05/2025 CBC WITH DIFFE RENTI AL/PL ATELE T RDW 13.3 % 11.7-1 5.4 Not Available [facility] ([facility]) [address] [facility] [address], [place], [address], 02/05/2025 05:07:01 02/05/20 25 02/05/2025 CBC WITH DIFFE RENTI AL/PL ATELE T platelets 255 x10e3 /uL 150-45 0 normal Not Available [facility] ([facility]) [address] [facility] [address], [place], [address], 02/05/2025 05:07:01 02/05/20 25 02/05/2025 CBC WITH DIFFE RENTI AL/PL ATELE T neutrophils 66 % not estab. normal Not Available [facility] ([facility]) [address] [facility] [address], [place], [address], 02/05/2025 05:07:01 02/05/20 25 02/05/2025 CBC WITH DIFFE RENTI AL/PL ATELE T lymphs 24 % not estab. normal Not Available [facility] ([facility]) [address] [facility] [address], [place], [address], 02/05/2025 05:07:01 02/05/2002/05/2025 CBC WITH DIFFE RENTI AL/PL ATELE T monocytes 7 % not estab. normal Not Available [facility] ([facility]) [address] [facility], [place], [address], 02/05/2025 05:07:01 02/05/20 25 02/05/2025 CBC WITH DIFFE RENTI AL/PL ATELE T eos 2 % not estab. normal Not Available [facility] ([facility]) [address] [facility] [address], [place], [address], 02/05/2025 05:07:01 02/05/20 25 02/05/2025 CBC WITH DIFFE RENTI AL/PL ATELE T basos 1 % not estab. normal Not Available [facility] ([facility]) [address] [place], [address], 02/05/2025 05:07:01 02/05/20 25 02/05/2025 CBC WITH DIFFE RENTI AL/PL ATELE T immature cells [employer] Not Available [facility] ([facility]) [address] [place], [address], 02/05/2025 05:07:01 02/05/20 25 02/05/2025 CBC WITH DIFFE RENTI AL/PL ATELE T neutrophils (absolute) 4.3 x10e3 /uL 1.4-7. 0 normal Not Available [facility] ([facility]) [address] [place], [address], 02/05/2025 05:07:01 02/05/20 25 02/05/2025 CBC WITH DIFFE RENTI AL/PL ATELE T lymphs (absolute) 1.5 x10e3 /uL 0.7-3. 1 normal Not Available [facility] ([facility]) [address] [place], [address], 02/05/2025 05:07:01 02/05/20 25 02/05/2025 CBC WITH DIFFE RENTI AL/PL ATELE T monocytes(ab solute) 0.4 x10e3 /uL 0.1-0. 9 normal Not Available [facility] ([facility]) [address] [place], [address], 02/05/2025 05:07:01 02/05/20 25 02/05/2025 CBC WITH DIFFE RENTI AL/PL ATELE T eos (absolute) 0.1 x10e3 /uL 0.0-0. 4 normal Not Available [facility] ([facility]) [address] [place], [address], 02/05/2025 05:07:01 02/05/20 25 02/05/2025 CBC WITH DIFFE RENTI AL/PL ATELE T baso (absolute) 0.0 x10e3 /uL 0.0-0. 2 normal Not Available [facility] ([facility]) [address] [facility] [address], [place], [address], 02/05/2025 05:07:01 02/05/20 25 02/05/2025 CBC WITH DIFFE RENTI AL/PL ATELE T immature granulocytes 0 % not estab. Not Available [facility] ([facility]) [address] [facility] [address], [place], [address], 02/05/2025 05:07:01 02/05/20 25 02/05/2025 CBC WITH DIFFE RENTI AL/PL ATELE T immature grans (abs) 0.0 x10e3 /uL 0.0-0. 1 Not Available [facility] ([facility]) [address] [facility] [address], [place], [address], 02/05/2025 05:07:01 02/05/20 25 02/05/2025 CBC WITH DIFFE RENTI AL/PL ATELE T NRBC [employer] Not Available [facility] ([facility]) [address] [facility] [address], [place], [address], 02/05/2025 05:07:01 02/05/20 25 02/05/2025 CBC WITH DIFFE RENTI AL/PL ATELE T hematology comments: [employer] Not Available [facility] ([facility]) [address] [facility] [address], [place], [address], 02/05/2025 05:07:01 02/05/20 25 02/05/2025 COMP. METAB OLIC PANEL (14) glucose 143 mg/dL 70-99 above high normal Not Available [facility] ([facility]) [address] [facility] [address], [place], [address], 02/05/2025 05:07:02 03/28/20 25 02/05/2025 COMP. METAB OLIC PANEL (14) BUN 12 mg/dL 8-27 normal Not Available [facility] ([facility]) [address] [facility] [place], [address], 02/05/2025 05:07:02 02/05/20 25 02/05/2025 COMP. METAB OLIC PANEL (14) creatinine 0.93 mg/dL 0.57-1 .00 normal Not Available [facility] ([facility]) [address] [facility] [address], [place], [address], 02/05/2025 05:07:02 02/05/20 25 02/05/2025 COMP. METAB OLIC PANEL (14) eGFR 64 mL/mi n/1.7 3 >59 normal Not Available [facility] ([facility]) [address] [facility] [address], [place], [address], 02/05/2025 05:07:02 02/05/20 25 02/05/2025 COMP. METAB OLIC PANEL (14) BUN/creatini ne ratio 13 12-28 normal Not Available [facility] ([facility]) [address] [facility] [address], [place], [address], 02/05/2025 05:07:02 02/05/20 25 02/05/2025 COMP. METAB OLIC PANEL (14) sodium 142 mmol/ L 134-14 4 normal Not Available [facility] ([facility]) [address] [facility] [place], [address], 02/05/2025 05:07:02 02/05/20 25 02/05/2025 COMP. METAB OLIC PANEL (14) potassium 3.6 mmol/ L 3.5-5. 2 normal Not Available [facility] ([facility]) [address] [facility] [address], [place], [address], 02/05/2025 05:07:02 02/05/20 25 02/05/2025 COMP. METAB OLIC PANEL (14) chloride 99 mmol/ L 96-106 normal Not Available [facility] ([facility]) [address] [facility] [place], [address], 02/05/2025 05:07:02 02/05/20 25 02/05/2025 COMP. METAB OLIC PANEL (14) carbon dioxide, total 29 mmol/ L 20-29 normal Not Available [facility] ([facility]) [address] [facility] [place], [address], 02/05/2025 05:07:02 02/05/20 25 02/05/2025 COMP. METAB OLIC PANEL (14) calcium 9.0 mg/dL 8.7-10 .3 normal Not Available [facility] ([facility]) [address] [facility] [place], [address], 02/05/2025 05:07:02 02/05/20 25 02/05/2025 COMP. METAB OLIC PANEL (14) protein, total 6.2 g/dL 6.0-8. 5 normal Not Available [facility] ([facility]) [address] [facility] [place], [address], 02/05/2025 05:07:02 02/05/20 25 02/05/2025 COMP. METAB OLIC PANEL (14) albumin 3.9 g/dL 3.8-4. 8 normal Not Available [facility] ([facility]) [address] [facility] [place], [address], 02/05/2025 05:07:02 02/05/20 25 02/05/2025 COMP. METAB OLIC PANEL (14) globulin, total 2.3 g/dL 1.5-4. 5 Not Available [facility] ([facility]) [address] [facility] [place], [address], 02/05/2025 05:07:02 02/05/20 25 02/05/2025 COMP. METAB OLIC PANEL (14) bilirubin, total 0.4 mg/dL 0.0-1. 2 normal Not Available [facility] ([facility]) [address] [place], [address], 02/05/2025 05:07:02 02/05/20 25 02/05/2025 COMP. METAB OLIC PANEL (14) alkaline phosphatase 106 IU/L 44-121 normal Not Available [facility] ([facility]) [address] [place], [address], 02/05/2025 05:07:02 02/05/20 25 02/05/2025 COMP. METAB OLIC PANEL (14) AST (SGOT) 10 IU/L 0-40 normal Not Available [facility] ([facility]) [address] [place], [address], 02/05/2025 05:07:02 02/05/20 25 02/05/2025 COMP. METAB OLIC PANEL (14) ALT (SGPT) 10 IU/L 0-32 normal Not Available [facility] ([facility]) [address] [place], [address], 02/05/2025 05:07:02 02/05/20 25 02/05/2025 LIPID PANEL cholesterol, total 204 mg/dL 100-19 9 above high normal Not Available [facility] ([facility]) [address] [place], [address], 02/05/2025 05:07:03 02/05/20 25 02/05/2025 LIPID PANEL triglyceride s 189 mg/dL 0-149 above high normal Not Available [facility] ([facility]) [address] [place], [address], 02/05/2025 05:07:03 02/05/20 25 02/05/2025 LIPID PANEL HDL cholesterol 57 mg/dL >39 normal Not Available [facility] ([facility]) [address] [place], [address], 02/05/2025 05:07:03 02/05/20 25 02/05/2025 LIPID PANEL VLDL cholesterol jj 33 mg/dL 5-40 Not Available [facility] ([facility]) [address] [place], [address], 02/05/2025 05:07:03 02/05/20 25 02/05/2025 LIPID PANEL LDL chol calc ([facility]) 114 mg/dL 0-99 above high normal Not Available [facility] ([facility]) [address] [facility] [address], [place], [address], 02/05/2025 05:07:03 02/05/20 25 02/05/2025 LIPID PANEL LDL calc comment: [employer] Not Available [facility] ([facility]) [address] [facility] [address], [place], [address], 02/05/2025 05:07:03 02/05/20 25 02/05/2025 HCV ANTIB MADDY CASCA DE(PC R/GEN O) HCV Ab Non Reacti ve non reacti ve Not Available [facility] ([facility]) [address] [facility] [address], [place], [address], 02/05/2025 05:07:03 02/05/20 25 02/05/2025 HCV ANTIB MADDY CASCA DE(PC R/GEN O) interpretati on: Commen t Not infec pablo with HCV unles s early or acute infec tion is suspe cted (whic h may be delay ed in an immun ocomp romis ed indiv idual ), or other evide nce exist s to indic ate HCV infec tion. Not Available [facility] ([facility]) [address] [facility] [address], [place], [address], 02/05/2025 05:07:03 02/05/20 25 02/05/2025 HEMOG LOBIN A1C hemoglobin A1C 6.6 % 4.8-5. 6 above high normal Predi abete s: 5.7 - 6.4 Diabe emilia: >6.4 Glyce howard contr ol for adult s with diabe emilia: <7.0 Not Available [facility] ([facility]) [address], [place], [address], 02/05/2025 05:07:04 01/22/20 25 XR, chest , 2 view No observ ation record ed. [email or web address] [address], [address], 01/28/2025 08:49:05 02/10/20 25 02/09/2025 XR, knee, 3 view No observ ation record ed. [address] (Radiology) [address], [place], [address], 02/11/2025 10:30:01 02/10/20 25 02/09/2025 XR, knee, 3 view No observ ation record ed. [address] (Radiology) [address] [place], [address], 02/11/2025 10:25:34 03/14/20 25 elect rocar diogr am No observ ation record ed. [email or web address] Not Available 2024 15:03:51 03/14/20 25 03/14/2025 XR, chest , 2 view No observ ation record ed. [facility] ([facility]iology) [address], [place], [address], 03/14/2025 15:04:04 03/28/20 25 XR, chest , 2 view No observ ation record ed. [email or web address] [address], [address], 03/30/2025 08:33:17 04/15/20 25 04/15/2025 XR, chest No observ ation record ed. [email or web address] (Radiology) [address] [place], [address], 04/18/2025 08:31:43 04/15/20 25 04/15/2025 XR, chest No observ ation record ed. [email or web address] [facility] ([facility]iology) [address] , [place], [address], 04/18/2025 08:41:09 Result Notes None recorded. Problems Name Problem SNOMED Code Status Onset Date Resolution Date Notes Provider Name and Address Organization Details Recorded Time Hypertensiv e disorder 03659697 Active 2023 Allison Sun NP [address] [place], [address], [employer] 5 09:37:41 Glaucoma 59883597 Active 2023 Allison Sun NP [address] [place] [address], [address], [employer] 5 09:37:38 Mild recurrent major depression 93527091 Active 2023 Allison Sun NP [address] [place] [address], [address], [employer] 5 09:37:46 Anxiety 14249018 Active 2023 Allison Sun NP [address] [place] [address], [address], [employer] 5 09:37:11 Osteoarthri tis 753178766 Active 2023 Allison Sun NP [address] [place] [address], [address], [employer] 5 09:37:48 Insomnia 751174915 Active 2023 Allison Sun NP [address] [place] [address], [address], [employer] 5 09:37:44 Hyperlipide titus 66356932 Active 2023 Allison Sun NP [address] [place], [address], [employer] 5 09:37:39 Type 2 diabetes mellitus 66356875 Active 2023 Allison Sun NP [address] [place], [address], [place] [email or web address] 4 13:01:26 Fever 240469127 Completed 202402/04/2025 Allison Sun, [employer] [address] [place] [address], [address], [place] [employer] 09:37:35 Influenza caused by Influenza A virus 190237924 Completed 202402/04/2025 Allison Sun, [employer] [address] [place] [address], [address], [place] [email or web address] 09:37:43 Wheezing 74773666 Completed 202402/04/2025 Allison Sun, [employer] [address] [place] [address], [address], [place] [email or web address] 09:37:50 Dyspnea 301961496 Completed 202403/28/2025 Allison Sun, [employer] [address] [place] [address], [address], [place] [email or web address] 10:09:32 Acute exacerbatio n of chronic obstructive pulmonary disease 109378970 Completed 202402/04/2025 Allison Sun, [employer] [address] [place] [address], [address], [employer] 10:18:34 Dementia 24709631 Active 2024 Allison Sun, [employer] [address] [place] [address], [address], [place] [email or web address] 13:25:09 Chronic obstructive pulmonary disease 08691296 Active 2024 Allison Sun, [employer] [address] [place] [address], [address], [place] [email or web address] 13:26:22 Dyspnea on exertion 83544927 Active 2024 Allsion Sun, [employer]OR [address] [place] [address], [address], [employer] 5 10:09:37 Pain of right shoulder region Active 2024 Allison Sun NP [address] [place] [address], [address], [employer] 5 10:09:39 Acute exacerbatio n of chronic obstructive pulmonary disease 159190610 Active 2024 Allison Sun NP [address] [place] [address], [address], [employer] 5 10:18:34 Muscle weakness 34357890 Active 2024 Allison Sun NP [address] [place] [address], [address], [employer] 5 17:03:57 Reduced mobility 0480601 Active 2024 Allison Sun NP [address] [place] [address], [address], [employer] 5 17:04:36 Problem Notes None recorded. Procedures Surgical History Date Name Laterality Status Provider Name and Address Organization Details Recorded Time 0 section completed Allison Sun NP [address] [place] [address], [address], [employer] 10/21/2024 12:28:17 7 section completed Allison Sun NP [address] [place] [address], [address], [employer] 10/21/2024 12:27:59 Imaging Results None recorded. Procedure Notes None recorded. Medical Equipment None Reported. Allergies No known drug allergies Medications Name Sig Start Date Stop Date Status Note LastModified by Organization Details LastModified Time fluoxetine 40 mg capsule 10/28 completed Not Available Not Available Not Available furosemide 40 mg tablet Take 1/2 tablet once daily PO 01/28 completed Not Available Not Available Not Available metformin 500 mg tablet 10/21 completed Not Available Not Available Not Available doxycycline hyclate 100 mg capsule 10/21 completed Not Available Not Available Not Available ipratropium 0.5 mg-albutero l 3 mg (2.5 mg base)/3 mL nebulizatio n soln Inhale 3 mL by nebulizat ion route. 2024 active Not Available Not Available Not Avai lable albuterol sulfate 2.5 mg/3 mL (0.083 %) solution for nebulizatio n Inhale 3 mL 3 times a day by nebulizat ion route as needed, for wheezing or shortness of breath. Do not use within 4 hours of albuterol inhaler.. 2024 active Not Available Not Available Not Avai lable trazodone 50 mg tablet TAKE 1 TABLET BY MOUTH AT BEDTIME active Not Available Not Available No t Available lisinopril 20 mg-hydrochl orothiazide 12.5 mg tablet 10/21 completed Not Available Not Available Not Available azithromyci n 250 mg tablet TAKE 2 TABLETS (500 MG) BY ORAL ROUTE ONCE DAILY FOR 1 DAY THEN 1 TABLET (250 MG) BY ORAL ROUTE ONCE DAILY FOR 4 DAYS 2024 active Not Available Not Available Not Avai lable metoprolol succinate ER 50 mg tablet,exte nded release 24 hr Take 1 tablet every day by oral route. active Not Available Not Available No t Available meloxicam 15 mg tablet TAKE 1 TABLET EVERY DAY BY ORAL ROUTE. 2024 active Not Available Not Available Not Avai lable prednisone 20 mg tablet Take 2 tablets every day by oral route for 5 days. 2024 active Not Available Not Available Not Avai lable simvastatin 10 mg tablet 02/05 completed Not Available Not Available Not Available clopidogrel 75 mg tablet Take 1 tablet every day by oral route. 2024 active Not Available Not Available Not Avai lable quetiapine 100 mg tablet 10/21 completed Not Available Not Available Not Available isosorbide mononitrate ER 60 mg tablet,exte nded release 24 hr 10/21 completed Not Available Not Available Not Available clonidine HCl 0.2 mg tablet TAKE 1 TABLET BY MOUTH TWICE DAILY 2024 active Not Available Not Available Not Avai lable potassium chloride ER 20 mEq tablet,exte nded release(par t/cryst) active Not Available Not Available Not Available simvastatin 20 mg tablet Take 1 tablet every day by oral route at bedtime, for cholester ol. 2024 active Not Available Not Available Not Avai lable oseltamivir 75 mg capsule Take 1 capsule twice a day by oral route. 03/28 completed Not Available Not Available Not Available hydroxyzine HCl 25 mg tablet Take 1 tablet 3 times a day by oral route as needed, for anxiety. 2024 active Not Available Not Available Not Avai lable furosemide 20 mg tablet TAKE 1 TABLET BY MOUTH DAILY 2024 active Not Available Not Available Not Avai lable methylpredn isolone 4 mg tablets in a dose pack 10/21 completed Not Available Not Available Not Available albuterol sulfate HFA 90 mcg/actuati on aerosol inhaler Inhale 2 puffs every 4-6 hours by inhalatio n route as needed, for wheezing. active Not Available Not Available No t Available losartan 100 mg tablet TAKE 1 TABLET BY MOUTH EVERY DAY active Not Available Not Available No t Available amoxicillin 875 mg-potassiu m clavulanate 125 mg tablet Take 1 tablet every 12 hours by oral route. 02/04 completed Not Available Not Available Not Available escitalopra m 10 mg tablet Take 1 tablet PO daily 10/28 completed Not Available Not Available Not Available escitalopra m 20 mg tablet TAKE 1 TABLET EVERY DAY BY ORAL ROUTE. active Not Available Not Available No t Available Lumigan 0.01 % eye drops active Not Available Not Available Not Available Rhopressa 0.02 % eye drops active Not Available Not Available Not Available Breztri Aerosphere 160 mcg-9mcg-4. 8mcg/actuat ion HFA aerosol inhaler Inhale 2 puffs twice a day by inhalatio n route. active Not Available Not Available No t Available Vitals Date Recorded Body height Body mass index (BMI) Body weight Body temperature Heart rate Oxygen saturation Oxygen saturation in Arterial blood by Pulse oximetry Systolic blood pressure Diastolic blood pressure Provider Name and Address Organization Details Last Updated DateTime 5 156.85 cm 38.5 kg/m2 00629.8 1 g 98 [degF] 85 /min 92 % 92 % 136 mm[Hg] 82 mm[Hg] Radha Thompson [facility] [employer] [facility]. 5 08:54:18 Date Recorded Body height Body mass index (BMI) Body weight Body temperature Heart rate Oxygen saturation Oxygen saturation in Arterial blood by Pulse oximetry Systolic blood pressure Diastolic blood pressure Provider Name and Address Organization Details Last Updated DateTime 5 156.85 cm 41.4 kg/m2 612654. 79 g 98.9 [degF] 69 /min 94 % 94 % 138 mm[Hg] 81 mm[Hg] Brandee Virgen [employer] 5 08:40:46 Date Recorded Body height Body mass index (BMI) Body weight Heart rate Oxygen saturation Oxygen saturation in Arterial blood by Pulse oximetry Body temperature Systolic blood pressure Diastolic blood pressure Provider Name and Address Organization Details Last Updated DateTime 5 156.85 cm 41.3 kg/m2 499678. 69 g 56 /min 93 % 93 % 98.4 [degF] 132 mm[Hg] 76 mm[Hg] Brandee Virgen [employer]. 5 09:33:36 Date Recorded Body height Body mass index (BMI) Body weight Body temperature Heart rate Oxygen saturation Oxygen saturation in Arterial blood by Pulse oximetry Systolic blood pressure Diastolic blood pressure Systolic blood pressure Diastolic blood pressure Systolic blood pressure Diastolic blood pressure Provider Name and Address Organization Details Last Updated DateTime 5 156.85 cm 41.3 kg/m2 102741. 69 g 98.6 [degF] 66 /min 93 % 93 % 217 mm[Hg] 100 mm[Hg] 157 mm[Hg] 97 mm[Hg] 168 mm[Hg] 94 mm[Hg] Brandee Virgen [facility]. 5 11:41:10 Date Recorded Body height Body temperature Heart rate Oxygen saturation Oxygen saturation in Arterial blood by Pulse oximetry Systolic blood pressure Diastolic blood pressure Provider Name and Address Organization Details Last Updated DateTime 5 156.85 cm 98.2 [degF] 58 /min 93 % 93 % 138 mm[Hg] 74 mm[Hg] Radha Thompson [employer]. 5 10:02:26 Social History Question Answer Notes LastModified by Organizat ion Details LastModified Time Tobacco Smoking Status Never Smoker Brandee mckeon [facility] [employer], [facility]. 10/21/2024 12:43:08 Are You Blind Or Do You Have Difficulty Seeing? No Information n ot available 10/21/2024 Are You A Caregiver? No [email or web address] Information not available 10/21/2024 In The 14 Days Before Symptom Onset, Have You Had Close Contact With A Laboratory-confirm ed COVID-19 While That Case Was Ill? No [email or web address] Information n ot available 10/21/2024 In The 14 Days Before Symptom Onset, Have You Had Close Contact With A Person Who Is Under Investigation For COVID-19 While That Person Was Ill? No [email or web address] Information not available 10/21/2024 Have You Been To An Area Known To Be High Risk For COVID-19? No Information not available 10/21/2024 Are You Deaf Or Do You Have Serious Difficulty Hearing? No Information not available 10/21/2024 What Type Of Diet Are You Following? REGULAR Information n ot available 10/21/2024 Have There Been Any Changes To Your Family Or Social Situation? No [email or web address] Information no t available 10/21/2024 Which Of Your Hands Is Dominant? Right Information n ot available 10/21/2024 What Was The Date Of Your Most Recent Tobacco Screening? 03/28/2025 [email or web address] Information not available 03/28/2025 What Is Your Relationship Status? Information not available 10/21/2024 Do You Use Your Seat Belt Or Car Seat Routinely? No [email or web address] Information not available 10/21/2024 Are You Sexually Active? No Information not available 10/21/2024 Do You Participate In Social Media? No [email or web address] Information not available 10/21/2024 Has Tobacco Cessation Counseling Been Provided? No [email or web address] Information not available 10/21/2024 Have You Recently Traveled Abroad? No [email or web address] Information not available 10/21/2024 Do You Have Difficulty Walking Or Climbing Stairs? Yes Information not available 10/21/2024 Are You Currently In School? No [email or web address] Information not available 10/21/2024 Do You Have Any Dietary Restrictions? No [email or web address] Information not available 10/21/2024 Sex: Female Functional Status Question Answer Note LastModified by Organizat ion Details LastModified Time Do you use any illicit or recreational drugs? No [email or web address] Information not available 10/21/2024 Do you or have you ever used any other forms of tobacco or nicotine? No [email or web address] Information not available 10/21/2024 What is your level of alcohol consumption? None [email or web address] Information not available 10/21/2024 Are you currently employed? No [email or web address] Information not available 10/21/2024 Do you have transportation difficulties? No [email or web address] Information not available 10/21/2024 Are you able to walk? [email or web address] Information not available 10/21/2024 Do you have difficulty doing errands alone? Yes Information not available 10/21/2024 Are you able to care for yourself? Yes Information not available 10/21/2024 Do you have difficulty dressing or bathing? Yes Information not available 10/21/2024 What is your exercise level? None Information not available 10/21/2024 Mental Status Question Answer Note LastModified by Organizat ion Details LastModified Time Do you feel stressed (tense, restless, nervous, or anxious, or unable to sleep at night)? [id number] [email or web address] Information not available 10/21/2024 Do you have difficulty concentrating, remembering or making decisions? No Information no t available 10/21/2024 Family History Nothing Reported. Medical History Condition Response Hospitalizations N Emergency room visit since last appointm ent. N Gynecological History Statement/Question Response Date of Last Pap Smear Most Recent Mammogram Obstetrics History GPAL:G 0 P 0 0 0 0 Immunizations Vaccine Type Date Status Note Provider Nam e and Address Organization Details Recorded Time COVID-19, mRNA, LNP-S, PF, 30 mcg/0.3 mL dose 07/12/2021 completed Allison Sun NP [address] [place], [address], [facility] [employer] 10/21/2024 12:30:04 COVID-19, mRNA, LNP-S, PF, 30 mcg/0.3 mL dose 08/13/2021 completed Allison Sun NP [address] [place], [address], [facility] [employer] [facility] 10/21/2024 12:30:04 Past Encounters Encounter ID Performer Location Encounter Start Date Encounter Closed Date Diagnosis/Indication Diagnosis SNOMED-CT Code Diagnosis ICD10 Code Diagnosis Note [id number] Allison Sun NP [place] [id number] 0 10/21/2024 11:06:27 10/21/2024 13:23:40 Hypertensive disorder 53455943 I10 Glaucoma 58925216 H40.9 Mild recur rent major depression 15670613 F33.0 Anxiety 25916215 F41.9 Osteoarthritis 764053572 M19.90 Insomnia 606543302 G47.0 0 Diabetes m ellitus screening 968544525 Z13.1 Hyperlipidemia 55720458 E78.5 [id number] Harper RobertsonASAD [place] [address] 10/26/2024 08:27:44 10/26/2024 10:40:36 Fall W19.XXXA Abnormal gait 04850547 R 26.9 Body mass index 30+ - obesity 492423497 Z68.38 [id number] Allison Sun NP [place] [address] 0 01/10/2025 08:20:33 01/10/2025 09:40:04 Fever 561734777 R50.9 Influenza caused by Influenza A virus 091870960 J09.X2 Wheezing 29032482 R06.2 [id number] [place] [address] 01/21/2025 07:58:13 01/21/2025 09:29:10 Fever 769086068 R50.9 Dyspnea 656093749 R06.00 Acute exac erbation of chronic obstructive pulmonary disease 379625617 J44.1 [id number] [place] [address] 02/04/2025 09:12:34 02/04/2025 12:37:30 Adult health examination 816342798 Z00.01 Type 2 blair betes mellitus 08201599 E11.9 Hyperlipidemia 49951666 E78.5 Hypertensive disorder 38 624159 I10 Osteoarthritis 348323489 M19.90 Mild recur rent major depression 19871238 F33.0 Anxiety 70749514 F41.9 Hepatitis C screening 41 4725360 Z11.59 Screening mammography 24 645954 Z12.31 Active or passive immunization 044250468 Z23 Body mass index 40+ - severely obese 285104047 Z68.41 Dementia 90366967 F01.50 Chronic ob structive pulmonary disease 73387029 J44.9 [id number] Allison Sun NP [place] [address] 03/14/2025 11:28:45 03/14/2025 12:55:38 Dyspnea on exertion 43122310 R06.09 Pain of ri ght shoulder region 8468075967 M25.905 [id number] Allison Sun NP [place] [address] 03/28/2025 09:44:53 03/28/2025 11:13:18 Acute exacerbation of chronic obstructive pulmonary disease 451909288 J44.1 Muscle weakness 30915511 M62.81 At [facility] ed risk for falls 833432961 Z91.81 Osteoarthritis 390684387 M19.90 Reduced mobility 6936702 R26.89 Health Concerns Section Related Observation LastModified by Organization Detai ls LastModified Time None Recorded Concern Status LastModified by Organization Details LastModified Time None Recorded Advance Directives Directive None Recorded Payers Insurance Date Sequence Insurance Name Policy Number Policy Hunter Covered Member ID Hunter Member ID Guarantor Name 03/14/2025 1 [place] Renuka Watts [id number] Renuka Watts 03/14/2025 [place] [email or web address] [facility] Renuka Watts [id number] Renuka Watts 03/28/2025 2 [employer] - HOSPITAL SURGICAL INDEMNITY Renuka Watts [id number] Renuka Watts Notes Date Note Type Note Provider Name and Address Organization Details Recorded Time 01/10/2025 text/html Patient presents for fever/chills and congestion that started two days ago. She has body aches and just does not feel well in general. She has had mild wheezing and has been using her albuterol inhaler PRN, but no shortness of breath. Daughter was sick last week and patient went with her to the hospital for ER evaluation and could have been exposed. Allison Sun NP [address] [place], [address], [employer]. 01/12/2025 10:21:29 01/21/2025 text/html Patient presents for ongoing cough. Diagnosed influenza 11 days ago. Completed tamiflu but continues to cough. New fever yesterday. Has had to use her albuterol inhaler more frequently since she has had the flu. She feels more tired than normal as well. She did not measure her temp yesterday but her neck got really hot like it does when she has a fever. Allison Sun NP [address] [place], [address], [employer]. 01/21/2025 11:12:24 02/04/2025 text/html Annual WellnessReported bypatient.Diet and Nutrition:discussed portion control; discussed diet improvement Fracture Risk:no recent explained fracture Physical Activity:discussed weightbearing activities; discussed exercise habits Additional Lifestyle Factors:no tobacco use; no alcohol intake Depression Risk:does have anxiety. Anxiety is worse in the evenings. Hearing:no loss of hearing Vision:She sees eye physician regularly for glaucoma. Presents for MWV.Has had diarrhea for the last several days. Has not had any nausea. No abd pain or cramping. States loose stools and more trouble making it to the restroom has been increased but no watery stools. She declines bedside commode that we previously discussed. Allison Sun NP [address] [place], [address], [employer]. 02/04/2025 13:26:34 03/14/2025 text/html Patient presents for dyspnea and right shoulder pain. Patient is poor historian d/t memory, but her is with her today and helps provide history. She has been c/o of intermittent right shoulder pain for some time now, but more frequently in the last day or so. She is getting short of breath more easily and cannot even make it to the bathroom and back without SOA. She has not had any CP. She does admit some shoulder pain today, but no other pain. Allison Sun NP [address] [place], [address], [employer], [employer]. 03/23/2025 08:16:58 03/28/2025 text/html Patient presents for evaluation of dyspnea. She states for the last few weeks she has been short of breath when she lays down flat. She was evaluated at [facility] ER and had negative chest XR and normal cardiac workup two weeks ago. Since then she has been coughing more and in the last 48 hours she cannot lay flat without becoming short of breath. She has had increased use of albuterol inhaler several times per day x 2-3 days now. She has not had fever or chills. Her helps provide history.She is having increased knee pain and trouble getting around. She is in wheelchair today. She is pending acceptance to local [facility]. Per her , they are working with employee benefits attorney on this. Allison Sun NP [address] [place], [address], [employer] 03/30/2025 09:59:37 OBGyn Episode No OBEpisode recorded.
--- OUTSIDE RECORDS SUMMARY | 2025-04-20 08:30 | XMS_ITS | Continuity of Care Document ---
Author Organization [place] - [employer], [facility] Address [address] [place] [address] Assessment Encounter Date Assessment Date Assessment LastModified by Organization Details LastModified Time 03/28/2025 03/28/2025 Treat per plan below. Instructed [...] Details Appointments FOLLOW UP 15 2024 11:00A M Allison Sun Not available Not available Not available Lab None recorded. Referral None recorded. Procedures None recorded. Surgeries None recorded. Imaging XR, chest, 2 view 2024 025 [email or web address] [facility], [address] [place] [address], [id number], 03/29/2025 10:21:14 Medication Orders prednison e 20 mg tablet 2024 025 [facility], [address] [place], [address], 03/29/2025 09:27:15 azithromy hector 250 mg tablet 2024 025 [facility]NA [facility], [address] [place], [address], 03/29/2025 09:27:16 ipratropi um 0.5 mg-albute rol 3 mg (2.5 mg base)/3 mL nebulizat ion soln 2024 025 [email or web address] Not available 03/28/2025 13:16:49 albuterol sulfate 2.5 mg/3 mL (0.083 %) solution for nebulizat ion 2024 025 [facility], [address] [place], [address], 03/30/2025 16:06:44 Patient TargetsNo targets recorded. Patient InstructionsNo instructions recorded. Reason for Referral None Reported. Results Created Date Observation Date Name Description Value Unit Range Abnormal Flag Note LastModifiedBy Organization Detail LastModifiedTime 03/14/20 25 elect tonie becerra am No observ ation record ed. Not Available 2024 15:03:51 03/14/20 25 03/14/2025 XR, chest , 2 view No observ ation record ed. [email or web address] [facility] (Radiology) [address], [place], [address], 03/14/2025 15:04:04 03/28/20 25 XR, chest , 2 view No observ ation record ed. [email or web address] [address], [place], [address], 03/30/2025 08:33:17 04/15/20 25 04/15/2025 XR, chest No observ ation record ed. [address] (Radiology) [address], [place], [address], 04/18/2025 08:31:43 04/15/20 25 04/15/2025 XR, chest No observ ation record ed. [address] (Radiology) [address], [place], [address], 04/18/2025 08:41:09 Result Notes None recorded. Problems Name Problem SNOMED Code Status Onset Date Resolution Date Notes Provider Name and Address Organization Details Recorded Time Hypertensiv e disorder 13255046 Active 2023 Allison Sun NP [address] [place] [address], [address] 8, [employer] 5 09:37:41 Glaucoma 47463944 Active 2023 Allison Sun NP [address] [place] [address], [address] 8, [place] [employer] 5 09:37:38 Mild recurrent major depression 62600683 Active 2023 Allison Sun NP [address] [place] [address], 947[address]104 8, [employer] 5 09:37:46 Anxiety 02039085 Active 2023 Allison Sun NP [address] [place] [address], [address] 8, [employer] 5 09:37:11 Osteoarthri tis 634006718 Active 2023 Allison Sun NP [address] [place] [address], [address]037 8, [employer] 5 09:37:48 Insomnia 177418326 Active 2023 Allison Sun NP [address] [place] [address], [address] 8, [employer] 5 09:37:44 Hyperlipide titus 33110045 Active 2023 Allison Sun NP [address] [place] [address], [address] 8, [employer] 5 09:37:39 Type 2 diabetes mellitus 18139524 Active 2023 Allison Sun NP [address] [place] [address], 16[address] 8, [employer] 4 13:01:26 Fever 023132652 Completed 202402/04/[address] [employer] [address] WORKER [address] [place] [address], [address] 8, [employer] 09:37:35 Influenza caused by Influenza A virus 619278075 Completed 202402/04/2025 Allison Sun NP [address] [place] [address], [address] 8, [employer] 09:37:43 Wheezing 90210715 Completed 202402/04/2025 Allison Sun [employer] [address] WORK[employer] [address] [place] [address], [address] 8, [employer] 09:37:50 Dyspnea 319346001 Completed 202403/28/2025 Allison Sun NP [address] [place] [address], [address] 8, [employer] 10:09:32 Acute exacerbatio n of chronic obstructive pulmonary disease 560168592 Completed 202402/04/2025 Allison Sun NP [address] [place] [address], 48[address] 8, [employer] 10:18:34 Dementia 50020285 Active 2024 Allison Sun NP [address] [place] [address], 58320[address]863 8, [employer] 13:25:09 Chronic obstructive pulmonary disease 69359938 Active 2024 Allison Sun [employer] [address] [employer] [address] [place] [address], 94786-292 8, [employer] 13:26:22 Dyspnea on exertion 65224200 Active 2024 Allison Sun NP [address] [place] [address], 84742-219 8, [employer] 10:09:37 Pain of right shoulder region Active 2024 Allison Sun NP [address] [place], [address], [employer] 5 10:09:39 Acute exacerbatio n of chronic obstructive pulmonary disease 774411003 Active 2024 Allison Sun NP [address] [place], [address], [employer] 5 10:18:34 Muscle weakness 75903808 Active 2024 Allison Sun NP [address] [place], [address], [employer] 5 17:03:57 Reduced mobility 9508121 Active 2024 Allison Sun NP [address] [place] [address], [address] 8, [employer] 5 17:04:36 Problem Notes None recorded. Procedures Surgical History Date Name Laterality Status Provider Name and Address Organization Details Recorded Time 0 section completed Allison Sun NP [address] [place] [address], [address], [employer] 10/21/2024 12:28:17 7 section completed Allison Sun NP [address] [place] [address], [address], [employer] 10/21/2024 12:27:59 Imaging Results None recorded. [...] Available Vitals Date Recorded Body height Body temperature Heart rate Oxygen saturation Oxygen saturation in Arterial blood by Pulse oximetry Systolic blood pressure Diastolic blood pressure Provider Name and Address Organization Details Last Updated DateTime 5 156.85 cm 98.2 [degF] 58 /min 93 % 93 % 138 mm[Hg] 74 mm[Hg] Radha Thompson [employer] 5 10:02:26 Social History Question Answer Notes LastModified by Organizat ion Details LastModified Time Tobacco Smoking Status Never Smoker [email or web address] 10/21/2024 12:43:08 Are You Blind Or Do You Have Difficulty Seeing? No Information n ot available 10/21/2024 Are You A Caregiver? No [email or web address] Information not available 10/21/2024 In The 14 Days Before Symptom Onset, Have You Had Close Contact With A Laboratory-confirm ed COVID-19 While That Case Was Ill? No [email or web address] Information n ot available 10/21/2024 In The 14 Days Before Symptom Onset, Have You Had Close Contact With A Person Who Is Under Investigation For COVID-19 While That Person Was Ill? No [email or web address] Information not available 10/21/2024 Have You Been To An Area Known To Be High Risk For COVID-19? No [email or web address] Information not available 10/21/2024 Are You Deaf Or Do You Have Serious Difficulty Hearing? No Information not available 10/21/2024 What Type Of Diet Are You Following? REGULAR Information n ot available 10/21/2024 Have There Been Any Changes To Your Family Or Social Situation? No [email or web address] Information no t available 10/21/2024 Which Of Your Hands Is Dominant? Right Information n ot available 10/21/2024 What Was The Date Of Your Most Recent Tobacco Screening? 03/28/2025 [email or web address] Information not available 03/28/2025 What Is Your Relationship Status? Information not available 10/21/2024 Do You Use Your Seat Belt Or Car Seat Routinely? No [email or web address] Information not available 10/21/2024 Are You Sexually Active? No [email or web address] Information not available 10/21/2024 Do You Participate In Social Media? No [email or web address] Information not available 10/21/2024 Has Tobacco Cessation Counseling Been Provided? No [email or web address] Information not available 10/21/2024 Have You Recently Traveled Abroad? No [email or web address] Information not available 10/21/2024 Do You Have Difficulty Walking Or Climbing Stairs? Yes Information not available 10/21/2024 Are You Currently In School? No [email or web address] Information not available 10/21/2024 Do You Have Any Dietary Restrictions? No [email or web address] Information not available 10/21/2024 Sex: Female Functional Status Question Answer Note LastModified by Organizat ion Details LastModified Time Do you use any illicit or recreational drugs? No [email or web address] Information not available 10/21/2024 Do you or have you ever used any other forms of tobacco or nicotine? No [email or web address] Information not available 10/21/2024 What is your level of alcohol consumption? None [email or web address] Information not available 10/21/2024 Are you currently employed? No [email or web address] Information not available 10/21/2024 Do you have transportation difficulties? No Information not available 10/21/2024 Are you able [...] anxious, or unable to sleep at night)? [id number] [email or web address] Information not available 10/21/2024 Do you have [...] dose 07/12/2021 completed Allison Sun NP [address] [place], [address], [employer] 10/21/2024 12:30:04 COVID-19, mRNA, LNP-S, PF, 30 mcg/0.3 mL dose 08/13/2021 completed Allison Sun NP [address] [place], [address], [place] [employer], [employer] 10/21/2024 12:30:04 Past Encounters Encounter ID Performer Location Encounter Start Date Encounter Closed Date Diagnosis/Indication Diagnosis SNOMED-CT Code Diagnosis ICD10 Code Diagnosis Note [id number] Allison Sun NP [facility] [address] [place] [address] 03/14/2025 11:28:45 03/14/2025 12:55:38 Dyspnea on exertion 33755303 R06.09 Pain of ri ght shoulder region 6490105712 M25.561 [id number] Allison Sun NP [facility] [address] [place] [address] 03/28/2025 09:44:53 03/28/2025 11:13:18 Acute exacerbation of chronic obstructive pulmonary disease 963281583 J44.1 Muscle weakness 25705644 M62.81 At [facility] ed risk for falls 350985181 Z91.81 Osteoarthritis 128386800 M19.90 Reduced mobility 1181137 R26.89 Health Concerns Section Related Observation LastModified by Organization Detai ls LastModified Time None Recorded Concern Status LastModified by Organization Details LastModified Time None Recorded Payers Encounter Date Sequence Insurance Name Policy Number Policy Hunter Covered Member ID Hunter Member ID Guarantor Name 03/28/2025 2 [employer] INSURANCE [facility] Renuka Watts [id number] Renuka Watts 03/28/2025 1 [place] Renuka Watts [id number] eRnuka Watts Notes Date Note Type Note Provider Name and Address Organization Details Recorded Time 03/28/2025 text/html Patient presents for evaluation of dyspnea. She states for the last few weeks she has been short of breath when she lays down flat. She was evaluated at [facility] ER and had negative chest XR [...] today. She is pending [facility]. Per her , they are working with civil litigation attorney on this. Allison Sun NP [address] [place] [address], [place], [address], [facility] [employer] 03/30/2025 09:59:37 OBGyn Episode No OBEpisode recorded.
--- OUTSIDE RECORDS SUMMARY | 2025-04-20 08:30 | XMS_ITS | Clinical Summary ---
Author Organization Healthcare Address [address] [place] [address] Care Team Providers Care Avionics Electronics Technician Name Role Phone Unavailable Primary Care Provider Unavailabl e Social History Tobacco Use Types Packs/Day Years Used Date Smoking Tobacco: Never Assessed Comments Unknown Sex and Gender Information Value Date Recorded Sex Assigned at Not on file Legal Sex Female 7:38 PM EDT Gender Identity Not on file Sexual Orientation Not on file Plan of Treatment Health Maintenance Due Date Last Done Comments [facility]-Bone Density Scan 1950 [facility]-Depression Screening 1950 [facility]-Infant/Child/Adol SDOH Screenings 1950 [facility]- SDOH Screenings 1969 [facility]-Adult SDOH Screenings 1969 [facility]-DTaP,Tdap,and Td Vaccine s (1 - Tdap) 1970 CT Colonography 02/01/1996 Colonoscopy 02/01/1996 FIT-DNA 02/01/1996 FIT 02/01/1996 FOBT 02/01/1996 Sigmoidoscopy 02/01/1996 [facility]-Colorectal Cancer Screening 02/01/1996 [facility]-Pneumococcal Vaccine: 50 + Years (1 of 1 - PCV) 2001 [facility]-Zoster Vaccines (1 of 2) 2001 [id number] Vaccine (3 - 2023- season) 2024 08/13/2021, 07/12/2021 [facility]-Influenza Vaccine (Seaso n Ended) 2025 [facility]-RSV Vaccine: 60+ Years o r (1 - 1-dose 75+ series) 2026 HPV Vaccines Aged Out No longer eligi ble based on patient's age to complete this topic [facility]-HIB Vaccines Aged Out No longer e ligible based on patient's age to complete this topic [facility]-Hepatitis A Vaccines Aged Out No longer eligible based on patient's age to complete this topic [facility]-IPV Vaccines Aged Out No longer e ligible based on patient's age to complete this topic [facility]-Rotavirus Vaccines Aged Out No lo nger eligible based on patient's age to complete this topic Insurance MEDICARE
[2025-04-20 08:34] LABS: Basophils % 0.4 % (0.1-2.0); Eosinophils # 0.2 Kmm3 (0.0-0.4); Eosinophils % 3.2 % (0.1-12.0); Hematocrit 31.7 % (37.0-47.0); Hemoglobin 10.2 g/dL (12.2-16.2); Immature Granulocytes # 0.04 10^3uL; Immature Granulocytes % 0.6 %; Lymphocytes # 1.5 K/mm3 (0.7-4.5); Lymphocytes % 21.5 % (10-50); Mean Corpuscular HGB Conc 32.2 g/dL (31.8-35.4); Mean Corpuscular Hemoglobin 28.3 pg (27.0-31.2); Mean Corpuscular Volume 87.8 fl (81-99); Monocytes # 0.4 K/mm3 (0.1-1.0); Monocytes % 6.3 % (1.7-9.3); Neutrophils # 4.7 K/mm3 (1.8-7.8); Nucleated Red Blood Cells # 0 10^3/uL; Nucleated Red Blood Cells % 0 %; Platelet Count 221 K/mm3 (142-424); Red Blood Count 3.61 M/mm3 (4.20-5.40); Red Cell Distribution Width 13.5 % (11.5-17.5)
[2025-04-20 09:37] LABS: Hemoglobin A1C 6.7 % (4.0-6.0)
[2025-04-20 10:08] LABS: Albumin Level 3.1 g/dl (3.5-5.0); Chloride 105 mmol/L (98-107); Potassium 3.8 mmoL/L (3.5-5.1); Sodium 138 mmol/L (136-145)
[2025-04-20 10:11] LABS: Alanine Aminotransferase 21 U/L (12-78); Albumin/Globulin Ratio 1.3 (1.1-1.8); Alkaline Phosphatase 103 U/L (38-126); Anion Gap 4.8 mEq/L (5-15); Aspartate Amino Transferase 25 U/L (14-36); Bilirubin,Total 0.3 mg/dl (0.2-1.3); Blood Urea Nitrogen 17 mg/dl (7-17); Calcium 8.7 mg/dl (8.4-10.2); Carbon Dioxide 32 mmol/L (22.0-30.0); Cholesterol 159 mg/dl (140-200); Estimated Glomerular Filt Rate 82 ml/min (>60); GFR (African American) 99 ML/MIN (>60); Globulin 2.4 g/dL (1.3-3.2); Glucose 128 mg/dl (74-100); Total Protein,Serum 5.5 g/dl (6.3-8.2); Triglycerides 174 mg/dl (30-150); VLDL Cholesterol 35 mg/dL (0-40)
[2025-04-20 10:12] LABS: Chol/HDL Ratio 3.1 (1-3.5); HDL Cholesterol 51 mg/dl (40-60)
[2025-04-20 10:34] LABS: Direct LDL Cholesterol < 30.00 mg/dL (100-129)
== END 2025-04-20 23:59 | disposition home or self-care (01) ==
PROVIDERS: PCP Family Medicine; Visit Provider Family Medicine
DX: E11.9 Type 2 diabetes mellitus without complications (principal); E78.5 Hyperlipidemia, unspecified; I10 Essential (primary) hypertension
CPT/HCPCS: 36415; 80053; 80061; 83036; 85025

== ENCOUNTER 2025-07-20 08:07 | Outpatient (CLI) | payer MEDICARE, OTHER, SELFPAY ==
[2025-07-20 08:15] LABS: Hematocrit 35.5 % (37.0-47.0); Hemoglobin 11.5 g/dL (12.2-16.2); Immature Granulocytes % 0.4 %; Mean Corpuscular HGB Conc 32.4 g/dL (31.8-35.4); Mean Corpuscular Hemoglobin 28.8 pg (27.0-31.2); Mean Corpuscular Volume 89.0 fl (81-99); Nucleated Red Blood Cells % 0 %; Platelet Count 240 K/mm3 (142-424); Red Blood Count 3.99 M/mm3 (4.20-5.40); Red Cell Distribution Width-SD 43.7 fL; White Blood Count 7.3 K/mm3 (4.8-10.8)
[2025-07-20 08:52] LABS: Alanine Aminotransferase 14 U/L (12-78); Albumin Level 3.4 g/dl (3.5-5.0); Albumin/Globulin Ratio 1.3 (1.1-1.8); Alkaline Phosphatase 98 U/L (38-126); Anion Gap 9.4 mEq/L (5-15); Aspartate Amino Transferase 16 U/L (14-36); Bilirubin,Total 0.3 mg/dl (0.2-1.3); Blood Urea Nitrogen 20 mg/dl (7-17); Calcium 9.4 mg/dl (8.4-10.2); Carbon Dioxide 30 mmol/L (22.0-30.0); Chloride 103 mmol/L (98-107); Cholesterol 152 mg/dl (140-200); Creatinine,Serum 0.80 mg/dl (0.52-1.04); Estimated Glomerular Filt Rate 70 ml/min (>60); GFR (African American) 85 ML/MIN (>60); Globulin 2.6 g/dL (1.3-3.2); Glucose 123 mg/dl (74-100); HDL Cholesterol 43 mg/dl (40-60); Potassium 4.4 mmoL/L (3.5-5.1); Sodium 138 mmol/L (136-145); Total Protein,Serum 6.0 g/dl (6.3-8.2); Triglycerides 147 mg/dl (30-150)
[2025-07-20 09:55] LABS: Hemoglobin A1C 7.1 % (4.0-6.0)
== END 2025-07-20 23:59 | disposition home or self-care (01) ==
PROVIDERS: PCP Family Medicine; Visit Provider Family Medicine
DX: E11.9 Type 2 diabetes mellitus without complications (principal)
CPT/HCPCS: 36415; 80053; 80061; 83036; 85025

== ENCOUNTER 2025-08-29 08:02 | Outpatient (CLI) | payer MEDICARE, OTHER, SELFPAY ==
[2025-08-29 08:07] LABS: Microscopic, Urine URINE MICROSCOPIC (MICROSCOPIC)
[2025-08-29 08:10] LABS: Bilirubin,Urine Negative (Negative); Glucose,Urine (UA) Negative (Negative); Ketones,Urine Negative (Negative); Leukocyte Esterase,Urine Negative (Negative); PH,Urine 5.5 (5.0-8.5); Protein,Urine Negative (Negative); Specific Gravity, Urine 1.015 (1.005-1.030); Urobilinogen,Urine 0.2 EU/dl (0.2)
--- OUTSIDE RECORDS SUMMARY | 2025-08-29 08:18 | XMS_ITS | Clinical Summary ---
Author Organization [facility] Address [address] [place] [address] Care Team Providers Care Undertaker Helper Name Role Phone Unavailable Primary Care Provider Unavailabl e Family History Medical History Relation Name Comments Heart disease Father HEART PROBLEMS Heart failure Mother Breast cancer Sister Other Sister [employer] PLACEMENT Relation Name Status Comments Father (Age 74) Mother (Age 85) Sister Alive Social History Tobacco Use Types Packs/Day Years Used Date Smoking Tobacco: Never Tobacco Cessation:Counseling Given: Not Answered Abuse Screen Answer Date Recorded Unsafe at Home or Work/School Not on file Feels Threatened by Someone? Not on file 07/2023 Does Anyone Keep You from Co ntacting Others or Doint Things Outside the Home? Not on file 08/18/2023 Physical Sign of Abuse Present Not on file 1 Housing Stability Answer Date Recorded Current Living Arrangements Not on file 07/2023 Potentially Unsafe Housing Conditions Not on [email or web address] e 08/18/2023 Family and Community Support Answer Luis E e Recorded Help with Day-to-Day Activities Not on file 08/18/2023 Lonely or Isolated Not on file 08/18/2023 Employment Answer Date Recorded Do you want help finding or keeping work or a rae b? Not on file 08/18/2023 Disabilities Answer Date Recorded Concentrating, Remembering, or Making Decisions Difficulty Not on file 08/18/2023 Doing Errands Independently Difficulty Not on fi le 08/18/2023 Education Answer Date Recorded Help with school or training? Not on file Preferred Language Not on file 08/18/2023 Comments Unknown Sex and Gender Information Value Date Recorded Sex Assigned at Not on file Legal Sex Female 12:36 PM EDT Gender Identity Not on file Sexual Orientation Not on file Occupation Industry Job Start Date Job End Date RETIRED Not on file Not on file Not on file Plan of Treatment Health Maintenance Due Date Last Done Comments DXA SCAN 1950 TDAP/TD VACCINES (1 - Tdap) 1970 MAMMOGRAM 1991 COLOGUARD 02/01/1996 COLON CANCER SCREENING 5 YEAR SIGMOIDOSCOPY 02/01/1996 COLONOSCOPY 02/01/1996 COLORECTAL CANCER SCREENING 02/01/1996 CT COLONOGRAPHY 02/01/1996 FECAL OCCULT BLOOD TEST 02/01/1996 FIT Testing (1 year) 02/01/1996 Pneumococcal Vaccine 50+ (1 of 1 - PCV) 2001 ZOSTER VACCINE (1 of 2) 2001 ANNUAL PHYSICAL 12/05/2022 HEPATITIS C SCREENING 12/05/2022 INFLUENZA VACCINE 06/10/2025 COVID-19 Vaccine ( season) 2025 Insurance MEDICARE A & B
--- OUTSIDE RECORDS SUMMARY | 2025-08-29 08:19 | XMS_ITS | Clinical Summary ---
Author Organization Healthcare Address [address] [place] [address] Care Team Providers Care Buyers' Agent Name Role Phone Unavailable Primary Care Provider [...] 2001 [facility]-Zoster Vaccines (1 of 2) 2001 [id number] Vaccine (3 - 2024- season) 2025 08/13/2021, 07/12/2021 [facility]-Influenza Vaccine (#1) 2025 [facility]-RSV Vaccine: 60+ Years o r [...]
--- OUTSIDE RECORDS SUMMARY | 2025-08-29 08:19 | XMS_ITS | Data Portability ---
Author Organization [facility] ADMIN Address [address] [place] [id number] Care Team Providers Care Motor Tester Name Role Phone JUWAN SORIA Primary Care Provider [phone] Assessment Encounter Date Assessment Date Assessment LastModified [...] panel, rapid IA, upper respiratory specimen 2023 024 [email or web address], [address] [place], [address], 16:11:57 Referral None recorded. Procedures None recorded. Surgeries None recorded. Imaging MAMMO, screening, digital, bilateral 2022 024 [facility] [address] [place] [address] [place], [address], 4 08:11:57 Medication Orders doxycycline hyclate 100 mg capsule 2023 024 [facility], [address] [place], [address], 4 09:38:29 Medrol (Timothy) 4 mg tablets in a dose pack 2023 024 [email or web address], [address] [place], [address], 4 09:39:45 Solu-Medrol (PF) 125 mg/2 mL [...] men FLU A negati ve Not Available [address] [place], [address], 11/12/2023 15:32:01 11/12/19 24 11/12/2023 influ anand virus A + B + SARS- CoV-2 (COVI D19) Ag panel , rapid IA, upper respi rator y speci men FLU B negati ve Not Available [address] [place], [address], 11/12/2023 15:32:01 11/12/19 24 11/12/2023 influ anand virus A + B + SARS- CoV-2 (COVI D19) Ag panel , rapid IA, upper respi rator y speci men SARS COV + SARS OV 2 negati ve Not Available [address] [place], [address], 11/12/2023 15:32:01 01/20/20 24 01/20/2024 elect tonie becerra am No observ ation record ed. [address], [place], [address], 01/20/2024 14:17:03 01/20/20 24 01/20/2024 elect tonie becerra am No observ ation record ed. [facility] [address], [place], [address], 01/20/2024 14:15:32 Result Notes None recorded. Problems Name Problem SNOMED Code Status Onset Date Resolution Date Notes Provider Name and Address Organization Details Recorded Time Essential hypertension 91048886 Active 2022 Latosha Pardini null, [place] - [facility] - [place] & [place] 3 09:37:56 Arthritis 0029960 Active 2022 Latosha Pardini null[place] & [place] 3 09:38:04 Edema 183882847 Active 2022 Latosha Pard[place] null[place] [facility] [place] & [place] 3 09:38:11 Type 2 diabetes mellitus 19646201 Active 2022 Latosha [place] & [place] 3 09:38:23 Insomnia 806563908 Active 2022 Latosha Pard[place] null[place] [facility] [place] & [place] 3 09:38:33 Cerebrovascul ar accident 937749979 Active 2022 Latosha Pard[place] null, [place] [facility] [place] & [place] 3 09:39:04 Asthma 957866646 Active 2022 Latosha Pard[place] [facility] [place] & [place] 3 09:39:12 Mixed anxiety and depressive disorder 218343523 Active 2022 Latosha Pardini null, [place] - [facility] [place] & [place] 3 09:39:28 Pulmonary hypertension 38695901 Active 2022 Latosha Pardini null, [place] - [facility] - [place] & [place] 3 09:39:47 Morbid obesity 958223781 Active 2022 Latosha mckeon, [place] - [facility] - [place] & [place] 3 09:39:58 Hypertensive disorder 62170983 Active 2022 Juwan Soria MD [address] [place] [address], [address] , [place] - [facility] - [place] & [place] 3 10:28:12 Intentionally harming self Active 2023 Latosha mckeon, [place] - [facility] - [place] & [place] 4 14:16:52 Problem Notes None recorded. Procedures Surgical History Date Name Laterality Status Provider Name and Address Organization Details Recorded Time section completed Shira ROSENBAUM - [facility] - [place] & [place] 04/14/2023 16:17:02 cardiac catheterization completed [facility]ira [facility] [place] 04/14/2023 16:17:13 Dilation and Curettage completed Shira Henry ROSENBAUM - [facility] & [place] 04/14/2023 16:17:47 Hysterectomy completed Shira ROSENBAUM - [facility] & [place] 04/14/2023 16:18:04 Imaging Results None recorded. Procedure Notes None recorded. Medical Equipment None Reported. Allergies Allergen ID Allergen Name Allergen Category Reaction Reaction Severity Criticality Documentation Date Start Date Code Code System Note Provider Name and Address Organization Details Recorded Time 76165 Cipro medicatio n Not available Not available Not available 10/16/2022 57197 3 RxNorm Arabella mckeon, [place] - [facility] - [place] & [place] 2 09:37:43 56021 Substance with sulfonami de structure and antibacte rial mechanism of action (substanc e) medicatio n Not available Not available Not available 10/16/2022 37767 8003 SNOMED Arabella mckeon, [place] [facility] & [place] 2 09:37:48 37313 Bactrim medicatio n Not available Not available Not available 10/16/2022 06766 9 RxNorm [place] [facility] & [place] 2 09:37:55 88602 propoxyph meghna hydrochlo ride medicatio n Not available Not available Not available 10/16/2022 82906 RxNorm [place] [facility] & [place] 2 09:38:03 95724 Ceftin medicatio n Not available Not available Not available 10/16/2022 88399 6 RxNorm [place] [facility] & [place] 2 09:38:10 27543 house dust mite environme nt Not available Not available Not available 10/16/2022 [place] [facility] & [place] 2 09:38:17 Medications Name Sig Start Date [...] Updated DateTime 4 154.94 cm 44.4 kg/m2 605829. 21 g 97.2 [degF] 91 % 91 % 90 /min 18 /min Fredi Lopez [facility] & [place] 4 15:31:24 Date Recorded Body height Body mass index (BMI) Body weight Oxygen saturation Oxygen saturation in Arterial blood by Pulse oximetry Heart rate Systolic And Diastolic Provider Name and Address Organization Details Last Updated DateTime 4 154.94 cm 39.5 kg/m2 13186.0 9 g 95 % 95 % 64 /min 147/76 mm[Hg] Sarah Ball [facility] & [place] 4 09:39:18 Date Recorded Body height Body mass index (BMI) Body weight Body temperature Oxygen saturation Oxygen saturation in Arterial blood by Pulse oximetry Heart rate Respiratory rate Systolic And Diastolic Provider Name and Address Organization Details Last Updated DateTime 4 154.94 cm 39.6 kg/m2 32974.2 4 g 97.4 [degF] 95 % 95 % 62 /min 16 /min 108/56 mm[Hg] Latosha ROSENBAUM [facility] & [place] 4 14:14:22 Date Recorded Body height Body mass index (BMI) Body weight Body temperature Oxygen saturation Oxygen saturation in Arterial blood by Pulse oximetry Heart rate Respiratory rate Systolic And Diastolic Provider Name and Address Organization Details Last Updated DateTime 4 154.94 cm 39.5 kg/m2 87691.8 1 g 97.5 [degF] 95 % 95 % 66 /min 16 /min 135/70 mm[Hg] Latosha Ramirez [facility] & [place] 4 10:16:20 Date Recorded Body height Body mass index (BMI) Body weight Body temperature Oxygen saturation Oxygen saturation in Arterial blood by Pulse oximetry Heart rate Respiratory rate Systolic And Diastolic Systolic And Diastolic Provider Name and Address Organization Details Last Updated DateTime 3 154.94 cm 44.5 kg/m2 767107. 64 g 97.3 [degF] 94 % 94 % 57 /min 18 /min 200/85 mm[Hg] 197/74 mm[Hg] Latosha ROSENBAUM [facility] & [place] 3 10:18:44 Social History Question Answer Notes LastModified by Brammo Details LastModified Time Tobacco Smoking Status Never [facility] [place] 10/16/2022 09:49:36 What Is Your Level Of Caffeine Consumption? Occasional Information not available 10/14/2023 Has Tobacco Cessation Counseling Been Provided? No Information not available 10/14/2023 Sex: Unknown Functional Status Question Answer Note LastModified by Brammo Details LastModified Time Do you use any illicit or recreational drugs? No Information not available 10/16/2022 Do you or have you ever used any other forms of tobacco or nicotine? No Information not available 10/14/2023 What is your level of alcohol consumption? None [email or web address] Information not available 10/16/2022 Mental Status None recorded. Family History Relationship Description Onset Age of this Age Resolved Age Notes LastModified by Organization Details LastModified Time Mother Hypertensive disorder [email or web address] Not available 2021 09:48:38 Mother Family member [email or web address] Not available 2021 09:49:24 Father Hypertensive disorder [email or web address] Not available 2021 09:48:45 Father Diabetes mellitus [email or web address] Not available 2021 09:48:55 Father Family member [email or web address] Not available 2021 09:49:24 Maternal Grandfather Family member Not available 2021 09:49:24 Maternal Grandmother Family member [email or web address] Not available 2021 09:49:24 Paternal Grandfather Family member Not available 2021 09:49:24 Paternal Grandmother Family member [email or web address] Not available 2021 09:49:24 Medical History Condition Response Allergies/Hayfever Y COPD Y Diabetes Y Anxiety Disorder Y Arthritis Y Cancer Y Asthma Y Hypertension Y Gynecological HistoryNo gynecological history recorded. Obstetrics History GPAL:G 0 P 0 0 0 0 Immunizations Vaccine Type Date Status Note Provider Nam e and Address Organization Details Recorded Time COVID-19, mRNA, LNP-S, PF, 30 mcg/0.3 mL dose 08/13/2021 completed Latoshasravani Maciel null, [place] [facility] [place] & [place] 11/27/2022 09:36:46 COVID-19, mRNA, LNP-S, PF, 30 mcg/0.3 mL dose 07/12/2021 completed Latosha Pardini null, [place] - [facility] - [place] & [place] 11/27/2022 09:36:46 Past Encounters Encounter ID Performer Location Encounter Start Date Encounter Closed Date Diagnosis/Indication Diagnosis SNOMED-CT Code Diagnosis ICD10 Code Diagnosis IMO Codes Diagnosis Note [id number] Juwan Soria MD [facility] [address] [address] 11/27/2022 09:24:05 11/27/2022 10:13:47 Mixed anxiety and depressive disorder 027894093 F41.8 Will refer to Behavioral diseaseas specialist Type 2 blair betes mellitus 57834680 E11.9 Hypertensive disorder 38 911182 I10 patient to continue with current medication s. Will obtain lab work today. [id number] Juwan Soria MD [facility] [address] [place] [address] 01/14/2023 10:55:10 01/14/2023 11:41:38 Upper respiratory infection 76869858 J06.9 will treat patient with antibiotic s and steroids. She has been instructed to follow-up as needed. Edema 626858355 R60.9 Essential hypertension 03237104 I10 Insomnia 445700621 G47.0 0 [id number] Juwan Soria MD [address] [place] [address] 05/21/2023 10:40:44 05/21/2023 11:46:10 Acute confusion 479381627 R41.0 Altered mental status 41 9972940 R41.82 We have had extensive discussion with [...] patient.I will refer patient to Neurology at [facility]. And get a baseline set of labs on her today. Type 2 blair betes mellitus 38922426 E11.9 blood drawn in the right hand by Latosha Maciel CMA, patient tolerated well. [id number] RUBÉN NGUYỄN, NASH [address] [place] [address] 08/22/2023 14:14:05 08/22/2023 14:42:00 Acute exacerbation of chronic asthmatic bronchitis 398424223 J44.1 Stop Symbicort. Start Breztri inhaler to take 2 puffs twice a day. Use Ventolin inhaler as neededresc ue vs maintenanc e inhaler educationu se of inhalers Essential hypertension 36157896 I10 compliance with medication importance f/u with PCP next week to recheck BPeducated on goal of less than 130/90advi sed low sodium diet, healthy lifestyle including exercise as ableER if any symptoms such as chest pain, shortness of breathIf her blood pressure gets worse, she needs to go to the ER. Educated on the importance of medication compliance . Edema 152328118 R60.9 Renewed Lasix to take with potassium [id number] Juwan Soria MD [address] [place] [address] 09/22/2023 10:29:35 09/22/2023 11:27:49 Poor short-term memory 271978588 R41.3 patient agrees to follow-up with Dr. Kennedy in [facility] 227354961 G47.0 0 we will start pt on ambien to use as needed [id number] Juwan Soria MD [address] [place] [address] 10/14/2023 10:06:15 10/14/2023 10:47:32 Essential hypertension 41896277 I10 Patient's blood pressure remains markedly elevated. She is also complainin g of a slight nonspecifi c headache. In view of the acuteness of patient's symptoms I have personally walked her over to her cardiologi st's office. She has been advised to go to the emergency department by her cardiologi . [id number] Juwan Soria MD [address] [place] [address] 11/12/2023 14:47:55 11/12/2023 16:09:47 Screening mammography of bilateral breasts 9947204364 09977 Z12.31 Cough 82463583 R05.9 Negative for COVID or the flu. Acute bronchitis 5844912 2 J20.9 [id number] Medina Vaughn MD [address] [place] [address] 01/19/2024 09:03:27 01/19/2024 09:57:45 Essential hypertension 72602083 I10 was uncontroll ed and went to ER. ER added ISMN now better controlled , patient asymptomat ic, will continue her BB, ISMN, and lasix. will increase the dose if needed. EKG normal. Blood work reviewed. Screening for cardiovascular system disease 374344913 Z13.6 Patient has multiple risk factors for coronary artery disease, but asymptomat ic. EKG normal sinus rhythm. continue medical treatment. no indication for ischemic work up at this time. Dyslipidemia 906319603 E 78.5 On statin follow up fasting lipid profile. History of cerebrovascular accident 093839370 Z86.73 No residual weakness, but has mild dementia. she is on Plavix and statin. Obesity 740412009 E66.9 BMI 39.5 recommend weight loss and sleep apnea evaluation . [id number] Juwan Soria MD [place] [address] [address] [place] [id number] 02/26/2024 13:53:55 02/26/2024 14:36:26 Altered mental status 557660584 R41.82 patient already follows up with Neurology. Patient is currently receiving home health care. [id number] Juwan Soria MD [place] [address] [address] [place] [id number] 04/08/2024 10:09:54 04/08/2024 10:37:13 Increased frequency of urination 868128689 R35.0 we have advised patient to reduce [...] Name 05/29/2024 1 [place] Renuka Watts [id number] Renuka Watts 05/29/2024 2 [employer] (MEDICARE SUPPLEMENT) Renuka Watts [id number] Renuka Watts 05/29/2024 [place] [facility] Renuka Watts [id number] Renuka Watts 05/29/2024 2 [employer] (MEDICARE SUPPLEMENT) PLAN F Renuka Watts [id number] Renuka Watts 05/29/2024 1 [place] Renuka Watts [id number] Renuka Watts 05/29/2024 [place] - [facility] (MEDICARE) Renuka Watts [id number] Renuka Watts Notes Date Note Type Note Provider Name and Address Organization Details Recorded Time 10/14/2023 text/html ROS as noted in the HPI Patient presents today complaining of a headache and elevated blood pressure. Patient's blood pressure is 200/85 in the office. A recheck came back at 197/74. Patient has a history of chronic high blood pressure. She is on multiple medications for this they include clonidine furosemide lisinopril / HCTZ metoprolol. Juwan Soria MD [address] [place] [address], [phone], [facility] 10/14/2023 11:04:20 11/12/2023 text/html patient presents today to follow-up from a hospital visit due to abdominal pain. She is complaining of a 1-2 day history of a cough that is productive of yellowish-green sputum. Patient is also wheezing pretty bad she has a baseline diagnosis of COPD. Juwan Soria MD [address] [place] [address], [phone], [facility] 11/12/2023 15:59:16 01/19/2024 text/html 73 year old female with past medical history of CVA several [...] systolic function EF 55-60%. Medina Vaughn MD [address] [place] [address], [phone], [facility] & [place] 01/19/2024 10:00:47 02/26/2024 text/html patient presents today for hospital follow-up visit. She was recently admitted to [facility] in [place]. Patient states that she had acute status changes prior to admission. She states that she is currently back to baseline. Juwan Soria MD [address] [place] [address], [phone], [facility] & [place] 03/09/2024 09:22:23 04/08/2024 text/html ROS as noted in the HPI Patient presents today complaining of urinary frequency. She thinks she is taking too much Lasix. Patient is urinating 7 to 8 times a day. Juwan Soria MD [address] [place] [address], [phone], [facility] & [place] 04/08/2024 10:59:06 OBGyn Episode No OBEpisode recorded.
[2025-08-29 08:38] LABS: Color,Urine Dark Yellow (Yellow)
[2025-08-29 09:08] LABS: Bacteria,Urine 4+ /lpf
[2025-08-29 09:09] LABS: Calcium Oxalate Crystals,Urine 1+ /lpf
== END 2025-08-29 23:59 | disposition home or self-care (01) ==
PROVIDERS: PCP Family Medicine; Visit Provider Family Medicine
DX: R30.0 Dysuria (principal)
CPT/HCPCS: 81001; 87086; 87088

== ENCOUNTER 2025-11-04 09:36 | Outpatient (CLI) | payer MEDICARE, OTHER, SELFPAY ==
--- OUTSIDE RECORDS SUMMARY | 2025-11-04 09:38 | XMS_ITS | Data Portability ---
Author Organization [facility] Know[employer]., SB - MSE Address [address] [place] [address] Assessment Encounter Date Assessment Date Assessment LastModified [...] agrees and will drive her directly to [facility]. Provided copy of today's ECG [...] Modified Time Details Appointments None recorded. Lab CBC w/ auto diff 2024 [facility] [address] [place], [address], 5 05:07:01 HbA1c (hemoglobin A1c), blood 2024 025 [facility] [address] [place], [address], 5 05:07:04 CMP, serum or plasma 2024 025 [facility] [address] [place], [address], 5 05:07:02 lipid panel, serum 2024 025 [facility] [address] [place], [address], 5 05:07:03 Hepatitis C IgG Ab, qual, serum 2024 025 [facility] [place], [address], 5 05:07:04 rapid flu (A+B) [address], [address], 5 11:12:16 rapid SARS CoV 2 Ag, QL, IA, upper respiratory specimen [email or web address], [address], 5 08:56:20 rapid flu (A+B) [address], [address], 09:18:34 rapid SARS CoV 2 Ag, QL, IA, upper respiratory specimen [address], [address], 09:18:34 Referral None recorded. Procedures None recorded. Surgeries None recorded. Imaging XR, chest, 2 view 2024 025 [email or web address], [address], 5 10:21:14 electrocard iogram 2024 [email or web address], [address], 5 12:55:38 MAMMO, screening, digital, bilateral - first available appt [address] Centralized Scheduling, [address] , [place], [address], 11:54:03 XR, chest, 2 view 2024 [facility], [facility], [place], [address], 11:31:09 Medication Orders prednisone 20 mg tablet 2024 [facility], [address], [place], [address], 09:27:15 azithromyci n 250 mg tablet 2024 [facility], [address], [place], [address], 09:27:16 ipratropium 0.5 mg-albutero l 3 mg (2.5 mg base)/3 mL nebulizatio n soln 2024 Not available 13:16:49 albuterol sulfate 2.5 mg/3 mL (0.083 %) solution for nebulizatio n 2024 [facility], [address], [place], [address], 16:06:44 amoxicillin 875 mg-potassiu m clavulanate 125 mg tablet 2024 [facility], [address], [place], [address], 09:36:41 prednisone 20 mg tablet 2024 [facility], [address], [place], [address], 5 09:36:42 oseltamivir 75 mg capsule 2024 [facility], [address] [place], [address], 10:04:33 Ventolin HFA 90 mcg/actuati on aerosol inhaler 2024 025 [facility], [address] [place], [address], 10:18:13 Patient TargetsNo targets recorded. Patient Instructions Encounter Date Encounter Id Patient Instructions Last Modified By Organization Details Last Modified Time 01/10/2025 [id number] learning about fever Not available 01/10/2025 09:18:34 wheezing or bronchoconstricti on: care instructions Not available 01/10/2025 09:19:20 01/21/2025 [id number] learning about fever [email or web address] Not available 01/21/2025 08:56:02 shortness of breath: care instructions [email or web address] Not available 01/21/2025 08:56:02 02/04/2025 [id number] dementia: care instructions Not available 02/04/2025 13:25:06 [...] (A+B) Flu A positi ve Not Available [address], [address], 01/10/2025 08:41:16 01/11/20 25 01/10/2025 rapid flu (A+B) Flu B negati ve Not Available [address], [address], 01/10/2025 08:41:16 01/11/20 25 01/10/2025 rapid SARS CoV 2 Ag, QL, IA, upper respi rator y speci men SARS CoV Ag negati ve Not Available [address], [address], 01/10/2025 08:41:18 01/22/20 25 01/21/2025 rapid flu (A+B) Flu A negati ve Not Available [address], [address], 01/21/2025 08:41:26 01/22/20 25 01/21/2025 rapid flu (A+B) Flu B negati ve Not Available [address], [address], 01/21/2025 08:41:26 01/22/20 25 01/21/2025 rapid SARS CoV 2 Ag, QL, IA, upper respi rator y speci men SARS CoV Ag negati ve Not Available [address], [address], 01/21/2025 08:41:31 02/05/20 25 02/05/2025 CBC WITH DIFFE RENTI AL/PL ATELE T WBC 6.4 x10e3 /uL 3.4-10 .8 normal Not Available [facility] ([facility]) [address] [facility] [place], [place], [address], 02/05/2025 05:07:01 02/05/20 25 02/05/2025 CBC WITH DIFFE RENTI AL/PL ATELE T RBC 4.50 x10e6 /uL 3.77-5 .28 normal Not Available [facility] ([facility]) [address] [facility] [place], [place], [address], 02/05/2025 05:07:01 02/05/20 25 02/05/2025 CBC WITH DIFFE RENTI AL/PL ATELE T hemoglobin 12.8 g/dL 11.1-1 5.9 normal Not Available [facility] ([facility]) [address] [place], [address], 02/05/2025 05:07:01 02/05/20 25 02/05/2025 CBC WITH DIFFE RENTI AL/PL ATELE T hematocrit 39.4 % 34.0-4 6.6 normal Not Available [facility] ([facility]) [address] [place], [address], 02/05/2025 05:07:01 02/05/20 25 02/05/2025 CBC WITH DIFFE RENTI AL/PL ATELE T MCV 88 fL 79-97 normal Not Available [facility] ([facility]) [address] [place], [address], 02/05/2025 05:07:01 02/05/20 25 02/05/2025 CBC WITH DIFFE RENTI AL/PL ATELE T MCH 28.4 pg 26.6-3 3.0 normal Not Available [facility] ([facility]) [address] [place], [address], 02/05/2025 05:07:01 02/05/20 25 02/05/2025 CBC WITH DIFFE RENTI AL/PL ATELE T MCHC 32.5 g/dL 31.5-3 5.7 normal Not Available [facility] ([facility]) [address] [place], [address], 02/05/2025 05:07:01 03/28/20 25 02/05/2025 CBC WITH DIFFE RENTI AL/PL ATELE T RDW 13.3 % 11.7-1 5.4 Not Available [facility] ([facility]) [address] [facility] [place], [place], [address], 02/05/2025 05:07:01 02/05/20 25 02/05/2025 CBC WITH DIFFE RENTI AL/PL ATELE T platelets 255 x10e3 /uL 150-45 0 normal Not Available [facility] ([facility]) [address] [facility] [place], [place], [address], 02/05/2025 05:07:01 02/05/20 25 02/05/2025 CBC WITH DIFFE RENTI AL/PL ATELE T neutrophils 66 % not estab. normal Not Available [facility] ([facility]) [address] [facility] [place], [place], [address], 02/05/2025 05:07:01 02/05/20 25 02/05/2025 CBC WITH DIFFE RENTI AL/PL ATELE T lymphs 24 % not estab. normal Not Available [facility] ([facility]) [address] [facility] [place], [place], [address], 02/05/2025 05:07:01 02/05/20 25 02/05/2025 CBC WITH DIFFE RENTI AL/PL ATELE T monocytes 7 % not estab. normal Not Available [facility] ([facility]) [address] [facility] [place], [place], [address], 02/05/2025 05:07:01 02/05/20 25 02/05/2025 CBC WITH DIFFE RENTI AL/PL ATELE T eos 2 % not estab. normal Not Available [facility] ([facility]) [address] [facility] [place], [place], [address], 02/05/2025 05:07:01 02/05/20 25 02/05/2025 CBC WITH DIFFE RENTI AL/PL ATELE T basos 1 % not estab. normal Not Available [facility] ([facility]) [address] [place], [address], 02/05/2025 05:07:01 02/05/20 25 02/05/2025 CBC WITH DIFFE RENTI AL/PL ATELE T immature cells JOB SPECIFICATION WRITER Not Available [facility] ([facility]) [address] [facility] [place], [place], [address], 02/05/2025 05:07:01 02/05/20 25 02/05/2025 CBC WITH DIFFE RENTI AL/PL ATELE T neutrophils (absolute) 4.3 x10e3 /uL 1.4-7. 0 normal Not Available [facility] ([facility]) [address] [facility] [place], [place], [address], 02/05/2025 05:07:01 02/05/20 25 02/05/2025 CBC WITH DIFFE RENTI AL/PL ATELE T lymphs (absolute) 1.5 x10e3 /uL 0.7-3. 1 normal Not Available [facility] ([facility]) [address] [place], [address], 02/05/2025 05:07:01 02/05/20 25 02/05/2025 CBC WITH DIFFE RENTI AL/PL ATELE T monocytes(ab solute) 0.4 x10e3 /uL 0.1-0. 9 normal Not Available [facility] ([facility]) [address] [place], [address], 02/05/2025 05:07:01 02/05/20 25 02/05/2025 CBC WITH DIFFE RENTI AL/PL ATELE T eos (absolute) 0.1 x10e3 /uL 0.0-0. 4 normal Not Available [facility] ([facility]) [address] [place], [address], 02/05/2025 05:07:01 02/05/20 25 02/05/2025 CBC WITH DIFFE RENTI AL/PL ATELE T baso (absolute) 0.0 x10e3 /uL 0.0-0. 2 normal Not Available [facility] ([facility]) [address] [facility] [place], [place], [address], 02/05/2025 05:07:01 02/05/20 25 02/05/2025 CBC WITH DIFFE RENTI AL/PL ATELE T immature granulocytes 0 % not estab. Not Available [facility] ([facility]) [address] [facility] [place], [place], [address], 02/05/2025 05:07:01 02/05/20 25 02/05/2025 CBC WITH DIFFE RENTI AL/PL ATELE T immature grans (abs) 0.0 x10e3 /uL 0.0-0. 1 Not Available [facility] ([facility]) [address] [facility] [place], [place], [address], 02/05/2025 05:07:01 02/05/20 25 02/05/2025 CBC WITH DIFFE RENTI AL/PL ATELE T NRBC JOB SPECIFICATION WRITER Not Available [facility] ([facility]) [address] [facility] [place], [place], [address], 02/05/2025 05:07:01 02/05/20 25 02/05/2025 CBC WITH DIFFE RENTI AL/PL ATELE T hematology comments: JOB SPECIFICATION WRITER Not Available [facility] ([facility]) [address] [place], [address], 02/05/2025 05:07:01 02/05/20 25 02/05/2025 COMP. METAB OLIC PANEL (14) glucose 143 mg/dL 70-99 above high normal Not Available [facility] ([facility]) [address] [place], [address], 02/05/2025 05:07:02 02/05/20 25 02/05/2025 COMP. METAB OLIC PANEL (14) BUN 12 mg/dL 8-27 normal Not Available [facility] ([facility]) [address] [facility] [place], [address], 02/05/2025 05:07:02 02/05/20 25 02/05/2025 COMP. METAB OLIC PANEL (14) creatinine 0.93 mg/dL 0.57-1 .00 normal Not Available [facility] ([facility]) [address] [facility] [place], [address], 02/05/2025 05:07:02 02/05/20 25 02/05/2025 COMP. METAB OLIC PANEL (14) eGFR 64 mL/mi n/1.7 3 >59 normal Not Available [facility] ([facility]) [address] [facility] [place], [address], 02/05/2025 05:07:02 02/05/20 25 02/05/2025 COMP. METAB OLIC PANEL (14) BUN/creatini ne ratio 13 12-28 normal Not Available [facility] ([facility]) [address] [facility] [place], [address], 02/05/2025 05:07:02 02/05/20 25 02/05/2025 COMP. METAB OLIC PANEL (14) sodium 142 mmol/ L 134-14 4 normal Not Available [facility] ([facility]) [address] [facility] [place], [address], 02/05/2025 05:07:02 02/05/20 25 02/05/2025 COMP. METAB OLIC PANEL (14) potassium 3.6 mmol/ L 3.5-5. 2 normal Not Available [facility] ([facility]) [address] [facility] [place], [address], 02/05/2025 05:07:02 02/05/20 25 02/05/2025 COMP. METAB OLIC PANEL (14) chloride 99 mmol/ L 96-106 normal Not Available [facility] ([facility]) [address] [place], [address], 02/05/2025 05:07:02 02/05/20 25 02/05/2025 COMP. METAB OLIC PANEL (14) carbon dioxide, total 29 mmol/ L - normal Not Available [facility] ([facility]) [address] [facility] [address] [place], [address], 02/05/2025 05:07:02 02/05/20 25 02/05/2025 COMP. METAB OLIC PANEL (14) calcium 9.0 mg/dL 8.7-10 .3 normal Not Available [facility] ([facility]) [address] [facility] [address] [place], [address], 02/05/2025 05:07:02 02/05/20 25 02/05/2025 COMP. METAB OLIC PANEL (14) protein, total 6.2 g/dL 6.0-8. 5 normal Not Available [facility] ([facility]) [address] [facility] [place], [address], 02/05/2025 05:07:02 02/05/20 25 02/05/2025 COMP. METAB OLIC PANEL (14) albumin 3.9 g/dL 3.8-4. 8 normal Not Available [facility] ([facility]) [address] [facility] [place], [address], 02/05/2025 05:07:02 02/05/20 25 02/05/2025 COMP. METAB OLIC PANEL (14) globulin, total 2.3 g/dL 1.5-4. 5 Not Available [facility] ([facility]) [address] [facility] [place], [address], 02/05/2025 05:07:02 02/05/20 25 02/05/2025 COMP. METAB OLIC PANEL (14) bilirubin, total 0.4 mg/dL 0.0-1. 2 normal Not Available [facility] ([facility]) [address], [place], [address], 02/05/2025 05:07:02 02/05/20 25 02/05/2025 COMP. METAB OLIC PANEL (14) alkaline phosphatase 106 IU/L 44-121 normal Not Available [facility] ([facility]) [address] [facility] [address], [place], [address], 02/05/2025 05:07:02 02/05/20 25 02/05/2025 COMP. METAB OLIC PANEL (14) AST (SGOT) 10 IU/L 0-40 normal Not Available [facility] ([facility]) [address] [facility] [place], [address], 02/05/2025 05:07:02 02/05/20 25 02/05/2025 COMP. METAB OLIC PANEL (14) ALT (SGPT) 10 IU/L 0-32 normal Not Available [facility] ([facility]) [address] [facility] [place], [address], 02/05/2025 05:07:02 02/05/20 25 02/05/2025 LIPID PANEL cholesterol, total 204 mg/dL 100-19 9 above high normal Not Available [facility] ([facility]) [address] [facility] [place], [place], [address], 02/05/2025 05:07:03 02/05/20 25 02/05/2025 LIPID PANEL triglyceride s 189 mg/dL 0-149 above high normal Not Available [facility] ([facility]) [address] [facility] [place], [place], [address], 02/05/2025 05:07:03 02/05/20 25 02/05/2025 LIPID PANEL HDL cholesterol 57 mg/dL >39 normal Not Available [facility]) [address] [facility] [place], [place], [address], 02/05/2025 05:07:03 02/05/20 25 02/05/2025 LIPID PANEL VLDL cholesterol jj 33 mg/dL 5-40 Not Available [facility] ([facility]) [address] [place], [address], 02/05/2025 05:07:03 02/05/20 25 02/05/2025 LIPID PANEL LDL chol calc ([facility]) 114 mg/dL 0-99 above high normal Not Available [facility] ([facility]) [address] [place], [address], 02/05/2025 05:07:03 02/05/20 25 02/05/2025 LIPID PANEL LDL calc comment: JOB SPECIFICATION WRITER Not Available [facility] ([facility]) [address] [facility] [place], [place], [address], 02/05/2025 05:07:03 02/05/20 25 02/05/2025 HCV ANTIB MADDY CASCA DE(PC R/GEN O) HCV Ab Non Reacti ve non reacti ve Not Available [facility] ([facility]) [address] [facility], [place], [address], 02/05/2025 05:07:03 02/05/20 25 02/05/2025 HCV ANTIB MADDY CASCA DE(PC R/GEN O) interpretati on: Commen t Not infec pablo with HCV unles s early or acute infec tion is suspe cted (whic h may be delay ed in an immun ocomp romis ed indiv idual ), or other evide nce exist s to indic ate HCV infec tion. Not Available [facility] ([facility]) [address] [place], [address], 02/05/2025 05:07:03 02/05/20 25 02/05/2025 HEMOG LOBIN A1C hemoglobin A1C 6.6 % 4.8-5. 6 above high normal Predi abete s: 5.7 - 6.4 Diabe emilia: >6.4 Glyce howard contr ol for adult s with diabe emilia: <7.0 Not Available [facility] ([facility]) [address] [facility] [place], [place], [address], 02/05/2025 05:07:04 01/22/20 25 XR, chest , 2 view No observ ation record ed. [email or web address], [address], 01/28/2025 08:49:05 02/10/20 25 02/09/2025 XR, knee, 3 view No observ ation record ed. [address] (Radiology) [address] , [place], [address], 02/11/2025 10:30:01 02/10/20 25 02/09/2025 XR, knee, 3 view No observ ation record ed. [address] (Radiology) [address], [place], [address], 02/11/2025 10:25:34 03/14/20 25 [facility] No observ ation record ed. [facility] Not Available 2024 15:03:51 03/14/20 25 03/14/2025 XR, chest , 2 view No observ ation record ed. [address] (Radiology) [address], [place], [address], 03/14/2025 15:04:04 03/28/20 25 XR, chest , 2 view No observ ation record ed. [email or web address] [address], [address], 03/30/2025 08:33:17 04/15/20 25 04/15/2025 XR, chest No observ ation record ed. [address] (Radiology) [address], [place], [address], 04/18/2025 08:31:43 04/15/20 25 04/15/2025 XR, chest No observ ation record ed. [address] (Radiology) [address] , [place], [address], 04/18/2025 08:41:09 Result Notes None recorded. Problems Name Problem SNOMED Code Status Onset Date Resolution Date Notes Provider Name and Address Organization Details Recorded Time Hypertensiv e disorder 06384158 Active 2023 Allison Sun APRN [address] [place] [address], [address], [employer] 5 09:37:41 Glaucoma 07028155 Active 2023 Allison Sun APRN [address] [place] [address], [address], [place] [employer] 5 09:37:38 Mild recurrent major depression 46197479 Active 2023 Allison Sun APRN [address] [place] [address], [address], [employer] 5 09:37:46 Anxiety 65219583 Active 2023 Allison Sun APRN [address] [place] [address], [address] 8, [place] [employer] 5 09:37:11 Osteoarthri tis 603798771 Active 2023 Allison Sun APRN [address] [place] [address], [address] 8, [place] [employer] 5 09:37:48 Insomnia 275829558 Active 2023 Allison Sun APRN [address] [place] [address], [address] 8, [employer] 5 09:37:44 Hyperlipide titus 12158097 Active 2023 Allison Sun APRN [address] [place] [address], [address] 8, [employer] 5 09:37:39 Type 2 diabetes mellitus 41268466 Active 2023 Allison Sun APRN [address] [place] [address], [address] 8, [employer] 4 13:01:26 Fever 703924789 Completed 202402/04/2025 Allison Sun APRN [address] [place] [address], [address] 8, [employer] 09:37:35 Influenza caused by Influenza A virus 925610687 Completed 202402/04/2025 Allison Sun APRN [address] [place] [address], [address] 8, [employer] 09:37:43 Wheezing 99816393 Completed 202402/04/2025 Allison Sun APRN [address] [place] [address], [address] 8, [employer] 09:37:50 Dyspnea 016108539 Completed 202403/28/2025 Allison Sun APRN [address] [place] [address], [address] 8, [employer] 10:09:32 Acute exacerbatio n of chronic obstructive pulmonary disease 255180351 Completed 202402/04/2025 Allison Sun APRN [address] [place] [address], [address] 8, [employer] 10:18:34 Dementia 90293249 Active 2024 Allison Sun APRN [address] [place] [address], [address]60[address] 8, [employer] 13:25:09 Chronic obstructive pulmonary disease 78116389 Active 2024 Allison Sun APRN [address] [place] [address], [address] 8, [employer] 13:26:22 Dyspnea on exertion 60357736 Active 2024 Allison Sun APRN [address] [place] [address], [address] 8, [employer] 5 10:09:37 Pain of right shoulder region Active 2024 Allison Sun APRN [address] [place] [address], [address] 8, [employer] 5 10:09:39 Acute exacerbatio n of chronic obstructive pulmonary disease 865728229 Active 2024 Allison Sun APRN [address] [place] [address], [address]58[address] 8, [employer] 5 10:18:34 Muscle weakness 35425284 Active 2024 Allison Sun APRN [address] [place] [address], [address] 8, [employer] 5 17:03:57 Reduced mobility 4646572 Active 2024 Allison Sun APRN [address] [place] [address], [address] 8, [employer] 5 17:04:36 Problem Notes None recorded. Procedures Surgical History Date Name Laterality Status Provider Name and Address Organization Details Recorded Time 0 section completed Allison Sun APRN [address] [place] [address], [address], [employer] 10/21/2024 12:28:17 7 section completed Allison Sun APRN [address] [place] [address], [address], [employer] 10/21/2024 12:27:59 Imaging Results None recorded. [...] weight Body temperature Heart rate Oxygen saturation Systolic And Diastolic Provider Name and Address Organization Details Last Updated DateTime 5 156.85 cm 38.5 kg/m2 03180.8 1 g 98 [degF] 85 /min 92 % 136/82 mm[Hg] Radha Thompson [facility] [employer], [facility]. 5 08:54:18 Date Recorded Body height Body mass index (BMI) Body weight Body temperature Heart rate Oxygen saturation Systolic And Diastolic Provider Name and Address Organization Details Last Updated DateTime 5 156.85 cm 41.4 kg/m2 689225. 79 g 98.9 [degF] 69 /min 94 % 138/81 mm[Hg] Brandee Virgen [facility]. 5 08:40:46 Date Recorded Body height Body mass index (BMI) Body weight Heart rate Oxygen saturation Body temperature Systolic And Diastolic Provider Name and Address Organization Details Last Updated DateTime 5 156.85 cm 41.3 kg/m2 514297. 69 g 56 /min 93 % 98.4 [degF] 132/76 mm[Hg] Brandee Virgen [facility]. 5 09:33:36 Date Recorded Body height Body mass index (BMI) Body weight Body temperature Heart rate Oxygen saturation Systolic And Diastolic Systolic And Diastolic Systolic And Diastolic Provider Name and Address Organization Details Last Updated DateTime 5 156.85 cm 41.3 kg/m2 546550. 69 g 98.6 [degF] 66 /min 93 % 217/100 mm[Hg] 157/97 mm[Hg] 168/94 mm[Hg] Brandee Virgen [facility]. 5 11:41:10 Date Recorded Body height Body temperature Heart rate Oxygen saturation Systolic And Diastolic Provider Name and Address Organization Details Last Updated DateTime 5 156.85 cm 98.2 [degF] 58 /min 93 % 138/74 mm[Hg] Radha Thompson [facility]. 5 10:02:26 Social History Question Answer Notes LastModified by Organizat ion Details LastModified Time Tobacco Smoking Status Never Smoker [facility] 10/21/2024 12:43:08 Are You Blind Or Do You Have Difficulty Seeing? No Information n ot available 10/21/2024 Are You A Caregiver? No Information not available 10/21/2024 In The 14 Days Before Symptom Onset, Have You Had Close Contact With A Laboratory-confirm ed COVID-19 While That Case Was Ill? No [email or web address] Information n ot available 10/21/2024 In The 14 Days Before Symptom Onset, Have You Had Close Contact With A Person Who Is Under Investigation For COVID-19 While That Person Was Ill? No [email or web address] Information not available 10/21/2024 Have You Been To An Area Known To Be High Risk For COVID-19? No [email or web address] Information not available 10/21/2024 Are You Deaf Or Do You Have Serious Difficulty Hearing? No Information not available 10/21/2024 What Type Of Diet Are You Following? REGULAR Information n ot available 10/21/2024 Have There Been Any Changes To Your Family Or Social Situation? No [email or web address] Information no t available 10/21/2024 Which Of Your Hands Is Dominant? Right Information n ot available 10/21/2024 What Was The Date Of Your Most Recent Tobacco Screening? 03/28/2025 [email or web address] Information not available 03/28/2025 What Is Your Relationship Status? Information not available 10/21/2024 Do You Use Your Seat Belt Or Car Seat Routinely? No [email or web address] Information not available 10/21/2024 Are You Sexually Active? No [email or web address] Information not available 10/21/2024 Do You Participate In Social Media? No [email or web address] Information not available 10/21/2024 Has Tobacco Cessation Counseling Been Provided? No [email or web address] Information not available 10/21/2024 Have You Recently Traveled Abroad? No [email or web address] Information not available 10/21/2024 Do You Have Difficulty Walking Or Climbing Stairs? Yes Information not available 10/21/2024 Are You Currently In School? No [email or web address] Information not available 10/21/2024 Do You Have Any Dietary Restrictions? No Information not available 10/21/2024 Sex: Female Functional Status Question Answer Note LastModified by Organizat ion Details LastModified Time Do you use any illicit or recreational drugs? No [email or web address] Information not available 10/21/2024 Do you or have you ever used any other forms of tobacco or nicotine? No Information not available 10/21/2024 What is your level of alcohol consumption? None [email or web address] Information not available 10/21/2024 Are you currently employed? No [email or web address] Information not available 10/21/2024 Do you have transportation difficulties? No [email or web address] Information not available 10/21/2024 Are you able to walk independently without assistance or assistive devices? YESASSIST Information not available 10/21/2024 Do you have difficulty doing errands alone? Yes Information not available 10/21/2024 Are you able to care for yourself independently? Yes Information not available 10/21/2024 Do you have difficulty dressing, bathing, grooming, or toileting? Yes Information not available 10/21/2024 What is your exercise level? None Information not available 10/21/2024 Mental Status Question Answer Note LastModified by Organizat ion Details LastModified Time Do you feel stressed (tense, restless, nervous, or anxious, or unable to sleep at night)? [id number] [email or web address] Information not available 10/21/2024 Do you have [...] mcg/0.3 mL dose 07/12/2021 completed Allison Sun APRN [address] [place] [address], [phone], [facility] [employer] 10/21/2024 12:30:04 COVID-19, mRNA, LNP-S, PF, 30 mcg/0.3 mL dose 08/13/2021 completed Allison Sun APRN [address] [place] [address], [phone], [employer] 10/21/2024 12:30:04 Past Encounters Encounter ID Performer Location Encounter Start Date Encounter Closed Date Diagnosis/Indication Diagnosis SNOMED-CT Code Diagnosis ICD10 Code Diagnosis IMO Codes Diagnosis Note [id number] Allison Sun [employer] [place] [address] 10/21/2024 11:06:27 10/21/2024 13:23:40 Hypertensive disorder 00359959 I10 Glaucoma 79439335 H40.9 Mild recur rent major depression 69168093 F33.0 Anxiety 23082100 F41.9 Osteoarthritis 998380779 M19.90 Insomnia 158245194 G47.0 0 Diabetes m ellitus screening 590925940 Z13.1 Hyperlipidemia 87194667 E78.5 [id number] [place] [address] 10/26/2024 08:27:44 10/26/2024 10:40:36 Fall W19.XXXA Abnormal gait 05976100 R 26.9 Body mass index 30+ - obesity 850946336 Z68.38 [id number] [place] [address] 01/10/2025 08:20:33 01/10/2025 09:40:04 Fever 505245332 R50.9 Influenza caused by Influenza A virus 162729753 J09.X2 Wheezing 35729198 R06.2 [id number] [place] [address] 0 01/21/2025 07:58:13 01/21/2025 09:29:10 Fever 468432109 R50.9 Dyspnea 324476581 R06.00 Acute exac erbation of chronic obstructive pulmonary disease 333468912 J44.1 [id number] [place] [address] 02/04/2025 09:12:34 02/04/2025 12:37:30 Adult health examination 458951937 Z00.01 Type 2 blair betes mellitus 86477850 E11.9 Hyperlipidemia 94220235 E78.5 Hypertensive disorder 38 939356 I10 Osteoarthritis 347362791 M19.90 Mild recur rent major depression 93507072 F33.0 Anxiety 03880201 F41.9 Hepatitis C screening 41 0313145 Z11.59 Screening mammography 24 737988 Z12.31 Active or passive immunization 486313359 Z23 Body mass index 40+ - severely obese 146908304 Z68.41 Dementia 86841411 F01.50 Chronic ob structive pulmonary disease 19424737 J44.9 [id number] [place] [address] 03/14/2025 11:28:45 03/14/2025 12:55:38 Dyspnea on exertion 35510461 R06.09 832052 Pain of ri t shoulder region 4639721904 M25.511 80045101 [id number] Allison Sun [place] [address] 0 03/28/2025 09:44:53 03/28/2025 11:13:18 Acute exacerbation of chronic obstructive pulmonary disease 722302603 J44.1 114422 Muscle weakness 84944643 M62.81 49007 At [facility] ed risk for falls 440834215 Z91.81 3341366 Osteoarthritis 782181446 M19.90 Reduced mobility 4618565 R26.89 7035212 Health Concerns Section Related Observation LastModified by Organization Detai ls LastModified Time None Recorded Concern Status LastModified by Organization Details LastModified Time None Recorded Advance Directives Directive None Recorded Payers Insurance Date Sequence Insurance Name Policy Number Policy Hunter Covered Member ID Hunter Member ID Guarantor Name 06/16/2025 1 [place] Renuka Watts [id number] Renuka Watts 03/14/2025 [place] [employer] - [facility] Renuka Watts [id number] Renuka Watts 05/03/2025 2 [employer]ITY (INDEMNITY) Renuka Watts [id number] Renuka Watts 04/29/2025 SLIDING FEE SCHEDULE - DISCOUNT Renuka Watts Notes Date Note Type Note Provider Name and Address Organization Details Recorded Time text/html Patient presents for fever/chills and congestion [...] evaluation and could have been exposed. Allison Sun, ASAD [address] [place], [address], [employer] 01/12/2025 10:21:29 5 text/html Patient presents for ongoing cough. Diagnosed [...] when she has a fever. Allison Sun APRN [address] [place], [address], [employer]. 01/21/2025 11:12:24 5 text/html Annual WellnessReported by PatientSocial/Behavioral HistoryFor diet and nutrition, patient reportsdiscussed portion controlanddiscussed diet improvement. For fracture risk, patient reportsno recent explained fracture. For physical activity, patient reportsdiscussed weightbearing activitiesanddiscussed exercise habits. For additional lifestyle factors, patient reportsno tobacco useandno alcohol intake.Mental Status:For depression risk, (does have anxiety. anxiety is worse in the evenings.).Functional AbilityFor hearing, patient reportsno loss of hearing. For vision, (she sees eye physician regularly for glaucoma.). Presents for MWV.Has had diarrhea for the last several days. Has not had any nausea. No abd pain or cramping. States loose stools and more trouble making it to the restroom has been increased but no watery stools. She declines bedside commode that we previously discussed. Allison Sun, LINK TRAINER OPERATOR [address] [place], [address], [employer] 02/04/2025 13:26:34 5 text/html Patient presents for dyspnea and right [...] today, but no other pain. Allison Sun APRN [address] [place], [address], [employer] 03/23/2025 08:16:58 5 text/html Patient presents for evaluation of dyspnea. She states for the last few weeks she has been short of breath when she lays down flat. She was evaluated at [facility] and had negative chest XR [...] today. She is pending acceptance to local [facility]. Per her , they are working with commercial litigation attorney on this. Allison Sun APRN [address] [facility], [place], [address], [employer] 03/30/2025 09:59:37 OBGyn Episode No OBEpisode recorded.
--- OUTSIDE RECORDS SUMMARY | 2025-11-04 09:38 | XMS_ITS | Clinical Summary ---
Author Organization Healthcare Address [address] [place] [address] Care Team Providers Care Hot Oiler Name Role Phone Unavailable Primary Care Provider [...] 2001 UKY-Zoster Vaccines (1 of 2) 2001 [id number] Vaccine (3 - 2024- season) 2025 08/13/2021, 07/12/2021 UKY-Influenza Vaccine (#1) 2025 UKY-RSV Vaccine: 60+ Years o r (1 - 1-dose 75+ series) 2026 HPV Vaccines (No Doses Required) Completed UKY-HIB Vaccines Aged Out No longer e [...]
--- OUTSIDE RECORDS SUMMARY | 2025-11-04 09:38 | XMS_ITS | Clinical Summary ---
Author Organization [facility] Address [address] [place] [address] Care Team Providers Care Banquet Bartender Name Role Phone Unavailable Primary Care Provider [...]
[2025-11-04 09:52] LABS: Hematocrit 35.2 % (37.0-47.0); Hemoglobin 11.3 g/dL (12.2-16.2); Immature Granulocytes % 0.9 %; Mean Corpuscular HGB Conc 32.1 g/dL (31.8-35.4); Mean Corpuscular Hemoglobin 29.4 pg (27.0-31.2); Mean Corpuscular Volume 91.4 fl (81-99); Nucleated Red Blood Cells % 0 %; Platelet Count 228 K/mm3 (142-424); Red Blood Count 3.85 M/mm3 (4.20-5.40); Red Cell Distribution Width-SD 44.8 fL; White Blood Count 8.1 K/mm3 (4.8-10.8)
[2025-11-04 10:07] LABS: Chloride 100 mmol/L (98-107); Sodium 134 mmol/L (136-145)
[2025-11-04 10:08] LABS: Potassium 4.6 mmoL/L (3.5-5.1)
[2025-11-04 10:10] LABS: Blood Urea Nitrogen 19 mg/dl (7-17); Creatinine,Serum 0.80 mg/dl (0.52-1.04); Estimated Glomerular Filt Rate 70 ml/min (>60); GFR (African American) 85 ML/MIN (>60)
[2025-11-04 10:11] LABS: Anion Gap 9.6 mEq/L (5-15); Calcium 9.5 mg/dl (8.4-10.2); Carbon Dioxide 29 mmol/L (22.0-30.0); Glucose 166 mg/dl (74-100)
[2025-11-04 11:13] LABS: Hemoglobin A1C 6.5 % (4.0-6.0)
== END 2025-11-04 23:59 | disposition home or self-care (01) ==
LOC: LAB.DROPOF 09:37
PROVIDERS: PCP Family Medicine; Visit Provider Family Medicine
DX: J44.9 Chronic obstructive pulmonary disease, unspecified (principal); E11.9 Type 2 diabetes mellitus without complications
CPT/HCPCS: 36415; 80048; 83036; 85025